=== PATIENT | female | born 1975 | race Caucasian/White ===

== ENCOUNTER 2019-01-19 17:39 | Inpatient (IN) | payer BC ==
[2019-01-19] MEDS ORDERED: ASPIRIN 300 MG SUPP RECTAL STA (17:50)
--- NOTE | 2019-01-19 17:59 | ED ---
CPR HPI - General Stated Complaint: Cardiac arrest Time Seen by Provider: 01/19/19 17:39 Source: EMS, RN notes reviewed Mode of arrival: EMS Limitations: no limitations - History of Present Illness Initial Comments: This a 43-year-old female who was brought in by EMS after sustaining a cardiac arrest. Patient apparently did not feel well yesterday this morning was complaining of chest pain her was acting driving her to the hospital when she became unresponsive. EMS was called she was found to be in ventricular fibrillation unresponsive she was given a total of 4 mg epinephrine 450 mg amiodarone she was verbally to 5 times. Patient apparently became unresponsive at around 1700 hrs. Return of spontaneous circulation about 1719. Patient has no known history of heart disease. Per paramedics there was a smell of alcohol in the ambulance when working on the patient's unclear whether she was drinking or not. No other information available at this time. The patient did get intubated she did have spontaneous return of circulation. MD Complaint: stopped breathing - Related Data Home Medications Medication Instructions Recorded Confirmed Elderberry Fruit/Honey [Little 10 ml PO DAILY 01/19/19 01/19/19 Remedies Cough-Immune] Allergies Allergy/AdvReac Type Severity Reaction Status Date / Time Penicillins Allergy Unknown Verified 01/19/19 19:19 Childhood Review of Systems ROS Statement: Those systems with pertinent positive or pertinent negative responses have been documented in the HPI. ROS Other: All systems not noted in ROS Statement are negative. Limitations: ROS unobtainable due to patients medical condition Past Medical History Past Medical History: No Reported History History of Any Multi-Drug Resistant Organisms: None Reported Past Surgical History: No Surgical Hx Reported Past Psychological History: No Psychological Hx Reported Smoking Status: Never smoker Past Alcohol Use History: None Reported Past Drug Use History: None Reported General Exam - General Exam Comments Initial Comments: This is a well-developed well-nourished unresponsive female who presented initially intubated with a Alonzo device on she was assisting with breathing. Limitations: no limitations General appearance: other (Unresponsive) Head exam: Present: atraumatic, normocephalic, normal inspection Eye exam: Present: other (Pupils approximately 4 mm and sluggish) ENT exam: Present: other (Oral tracheal tube in place) Neck exam: Present: normal inspection, other (No stridor JVD or bruits). Absent : tenderness, meningismus, lymphadenopathy Respiratory exam: Present: normal lung sounds bilaterally. Absent: respiratory distress, wheezes, rales, rhonchi, stridor Cardiovascular Exam: Present: normal rhythm, bradycardia GI/Abdominal exam: Present: soft, normal bowel sounds. Absent: distended, tenderness, guarding, rebound, rigid Rectal exam: Present: deferred External exam: Present: normal external exam Extremities exam: Present: normal inspection, normal capillary refill. Absent: tenderness, pedal edema, joint swelling, calf tenderness Back exam: Present: normal inspection Neurological exam: Present: alert, altered, other (Unresponsive) Psychiatric exam: Present: other (Unable to evaluate) Skin exam: Present: warm, dry, intact, normal color. Absent: rash Course Vital Signs 01/19/19 17:45 Temperature 98.7 F Pulse Rate 56 L Respiratory 20 Rate Blood Pressure 137/43 O2 Sat by Pulse 99 Oximetry - Reevaluation(s) Reevaluation #1: 01/19/19 18:48 I did a long discussion with the patient's regarding the findings and the initial presentation. After discussion sounds like CPR was started within several minutes of the incident. Patient did become unresponsive was foaming at the mouth having some shaking type episodes prior to 911 being called. The patient got her in a position where he could do CPR and did begin at then someone that new CPR took over EMS arrived and then took it from there. Reevaluation #2: 01/19/19 18:49 EKGs were difficult to obtain upon initial arrival. An EKG was finally obtained which showed a right bundle-branch block with a rate is 79 MI interval 162 QRS 122 QT since QTC 450 05/01/[address] elevation in the anterior leads. Dr. Dc was contacted and was sent a copy of EKG he will come in to examine the patient and make a determination on further care. Reevaluation #3: 01/19/19 19:31 Multiple EKGs were performed on the patient with a lot of artifact noted. Initial one showed indeterminate rhythm rate is 78. Interval 186 QRS duration 140 QT since QTC 382/435) bundle-branch block 8 undetermined age septal infarct with marked 1 artifact a repeat showed similar findings of marked artifact the rate is 78. Interval to 16 QRS duration 140 QT since QTC 370/4:30) bundle- branch block nonspecific septal changes additional EKG showing marked artifact rate was 56 QRS 132 QT since QTC 460/447 Bundle-branch block septal changes possible injury pattern though unclear last one prior to the clean-appearing 1 rate of 55 QRS 120 QT since QTC 420/4011 QRS possible fusion beats likely secondary to artifact right bundle-branch block and evidence of septal changes Reevaluation #4: 01/19/19 19:37 The patient is a patient of Dr. Dawson Medical Decision Making - Medical Decision Making I did a long discussion with the patient's Dr. Hebert did come the emergency department and the patient will be going to [facility]. I did discuss case with Dr. Conti and with Dr. Jackson. The patient will go to the [facility]. D-dimer was noted be elevated. Neurological status at this time is guarded. The patient did require some sedation due to fighting the endotracheal tube/ ventilator. - Lab Data Result diagrams: 01/19/19 17:51 01/19/19 17:51 Lab Results 01/19/19 01/19/19 01/19/19 Range/Units 17:48 17:51 17:51 WBC 11.8 H (3.8-10.6) k/uL RBC 4.55 (3.80-5.40) m/uL Hgb 15.0 (11.4-16.0) gm/dL Hct 49.5 H (34.0-46.0) % MCV 108.9 H (80.0-100.0) fL MCH 33.1 (25.0-35.0) pg MCHC 30.4 L (31.0-37.0) g/dL RDW 12.9 (11.5-15.5) % Plt Count 204 (150-450) k/uL Neutrophils % (Manual) 37 % Lymphocytes % (Manual) 54 % Monocytes % (Manual) 8 % Eosinophils % (Manual) 1 % Neutrophils # (Manual) 4.37 (1.3-7.7) k/uL Lymphocytes # (Manual) 6.37 H (1.0-4.8) k/uL Monocytes # (Manual) 0.94 (0-1.0) k/uL Eosinophils # (Manual) 0.12 (0-0.7) k/uL Nucleated RBCs 0 (0-0) /100 WBC Manual Slide Review Performed Hypochromasia Moderate Macrocytosis Moderate PT (9.0-12.0) sec INR (<1.2) APTT (22.0-30.0) sec D-Dimer (<0.60) mg/L FEU Sample Site ABG pH (7.35-7.45) ABG pCO2 (35-45) mmHg ABG pO2 (83-108) mmHg ABG HCO3 (21-25) mmol/L ABG Total CO2 (19-24) mmol/L ABG O2 Saturation (94-97) % ABG Base Excess mmol/L David Test FiO2 % Sodium 138 (137-145) mmol/L Potassium 4.5 (3.5-5.1) mmol/L Chloride 107 (98-107) mmol/L Carbon Dioxide 12 L (22-30) mmol/L Anion Gap 19 mmol/L BUN 15 (7-17) mg/dL Creatinine 1.27 H (0.52-1.04) mg/dL Est GFR (CKD-EPI)AfAm 60 (>60 ml/min/1.73 sqM) Est GFR (CKD-EPI)NonAf 52 (>60 ml/min/1.73 sqM) Glucose 324 H (74-99) mg/dL POC Glucose (mg/dL) 360 H (75-99) mg/dL POC Glu It Web Development Consultant ID Tone Goncalves Calcium 8.7 (8.4-10.2) mg/dL Magnesium 2.5 H (1.6-2.3) mg/dL Total Bilirubin 1.4 H (0.2-1.3) mg/dL AST 80 H (14-36) U/L ALT 27 (9-52) U/L Alkaline Phosphatase 49 (38-126) U/L Troponin I (0.000-0.034) ng/mL NT-Pro-B Natriuret Pep pg/mL Total Protein 6.2 L (6.3-8.2) g/dL Albumin 3.7 (3.5-5.0) g/dL Amylase 68 (30-110) U/L Lipase 177 (23-300) U/L Urine Color Urine Appearance (Clear) Urine pH (5.0-8.0) Ur Specific [place] (1.001-1.035) Urine Protein (Negative) Urine Glucose (UA) (Negative) Urine Ketones (Negative) Urine Blood (Negative) Urine Nitrite (Negative) Urine Bilirubin (Negative) Urine Urobilinogen (<2.0) mg/dL Ur Leukocyte Esterase (Negative) Urine HCG, Qual (Not Detectd) Urine Opiates Screen (NotDetected) Ur Oxycodone Screen (NotDetected) Urine Methadone Screen (NotDetected) Ur Propoxyphene Screen (NotDetected) Ur Barbiturates Screen (NotDetected) U Tricyclic Antidepress (NotDetected) Ur Phencyclidine Scrn (NotDetected) Ur Amphetamines Screen (NotDetected) U Methamphetamines Scrn (NotDetected) U Benzodiazepines Scrn (NotDetected) Urine Cocaine Screen (NotDetected) U Marijuana (THC) Screen (NotDetected) Serum Alcohol <10 mg/dL 01/19/19 01/19/19 01/19/19 Range/Units 17:51 17:51 17:51 WBC (3.8-10.6) k/uL RBC (3.80-5.40) m/uL Hgb (11.4-16.0) gm/dL Hct (34.0-46.0) % MCV (80.0-100.0) fL MCH (25.0-35.0) pg MCHC (31.0-37.0) g/dL RDW (11.5-15.5) % Plt Count (150-450) k/uL Neutrophils % (Manual) % Lymphocytes % (Manual) % Monocytes % (Manual) % Eosinophils % (Manual) % Neutrophils # (Manual) (1.3-7.7) k/uL Lymphocytes # (Manual) (1.0-4.8) k/uL Monocytes # (Manual) (0-1.0) k/uL Eosinophils # (Manual) (0-0.7) k/uL Nucleated RBCs (0-0) /100 WBC Manual Slide Review Hypochromasia Macrocytosis PT 10.6 (9.0-12.0) sec INR 1.0 (<1.2) APTT 26.5 (22.0-30.0) sec D-Dimer 5.11 H (<0.60) mg/L FEU Sample Site ABG pH (7.35-7.45) ABG pCO2 (35-45) mmHg ABG pO2 (83-108) mmHg ABG HCO3 (21-25) mmol/L ABG Total CO2 (19-24) mmol/L ABG O2 Saturation (94-97) % ABG Base Excess mmol/L David Test FiO2 % Sodium (137-145) mmol/L Potassium (3.5-5.1) mmol/L Chloride (98-107) mmol/L Carbon Dioxide (22-30) mmol/L Anion Gap mmol/L BUN (7-17) mg/dL Creatinine (0.52-1.04) mg/dL Est GFR (CKD-EPI)AfAm (>60 ml/min/1.73 sqM) Est GFR (CKD-EPI)NonAf (>60 ml/min/1.73 sqM) Glucose (74-99) mg/dL POC Glucose (mg/dL) (75-99) mg/dL POC Glu It Web Development Consultant ID Calcium (8.4-10.2) mg/dL Magnesium (1.6-2.3) mg/dL Total Bilirubin (0.2-1.3) mg/dL AST (14-36) U/L ALT (9-52) U/L Alkaline Phosphatase (38-126) U/L Troponin I 0.295 H* (0.000-0.034) ng/mL NT-Pro-B Natriuret Pep 462 pg/mL Total Protein (6.3-8.2) g/dL Albumin (3.5-5.0) g/dL Amylase (30-110) U/L Lipase (23-300) U/L Urine Color Urine Appearance (Clear) Urine pH (5.0-8.0) Ur Specific [place] (1.001-1.035) Urine Protein (Negative) Urine Glucose (UA) (Negative) Urine Ketones (Negative) Urine Blood (Negative) Urine Nitrite (Negative) Urine Bilirubin (Negative) Urine Urobilinogen (<2.0) mg/dL Ur Leukocyte Esterase (Negative) Urine HCG, Qual (Not Detectd) Urine Opiates Screen (NotDetected) Ur Oxycodone Screen (NotDetected) Urine Methadone Screen (NotDetected) Ur Propoxyphene Screen (NotDetected) Ur Barbiturates Screen (NotDetected) U Tricyclic Antidepress (NotDetected) Ur Phencyclidine Scrn (NotDetected) Ur Amphetamines Screen (NotDetected) U Methamphetamines Scrn (NotDetected) U Benzodiazepines Scrn (NotDetected) Urine Cocaine Screen (NotDetected) U Marijuana (THC) Screen (NotDetected) Serum Alcohol mg/dL 01/19/19 01/19/19 01/19/19 Range/Units 17:51 17:51 18:42 WBC (3.8-10.6) k/uL RBC (3.80-5.40) m/uL Hgb (11.4-16.0) gm/dL Hct (34.0-46.0) % MCV (80.0-100.0) fL MCH (25.0-35.0) pg MCHC (31.0-37.0) g/dL RDW (11.5-15.5) % Plt Count (150-450) k/uL Neutrophils % (Manual) % Lymphocytes % (Manual) % Monocytes % (Manual) % Eosinophils % (Manual) % Neutrophils # (Manual) (1.3-7.7) k/uL Lymphocytes # (Manual) (1.0-4.8) k/uL Monocytes # (Manual) (0-1.0) k/uL Eosinophils # (Manual) (0-0.7) k/uL Nucleated RBCs (0-0) /100 WBC Manual Slide Review Hypochromasia Macrocytosis PT (9.0-12.0) sec INR (<1.2) APTT (22.0-30.0) sec D-Dimer (<0.60) mg/L FEU Sample Site RRA ABG pH 7.08 L* (7.35-7.45) ABG pCO2 38 (35-45) mmHg ABG pO2 183 H (83-108) mmHg ABG HCO3 11 L (21-25) mmol/L ABG Total CO2 12 L (19-24) mmol/L ABG O2 Saturation 98.9 H (94-97) % ABG Base Excess -18.8 mmol/L David Test Yes FiO2 100 % Sodium (137-145) mmol/L Potassium (3.5-5.1) mmol/L Chloride (98-107) mmol/L Carbon Dioxide (22-30) mmol/L Anion Gap mmol/L BUN (7-17) mg/dL Creatinine (0.52-1.04) mg/dL Est GFR (CKD-EPI)AfAm (>60 ml/min/1.73 sqM) Est GFR (CKD-EPI)NonAf (>60 ml/min/1.73 sqM) Glucose (74-99) mg/dL POC Glucose (mg/dL) (75-99) mg/dL POC Glu It Web Development Consultant ID Calcium (8.4-10.2) mg/dL Magnesium (1.6-2.3) mg/dL Total Bilirubin (0.2-1.3) mg/dL AST (14-36) U/L ALT (9-52) U/L Alkaline Phosphatase (38-126) U/L Troponin I (0.000-0.034) ng/mL NT-Pro-B Natriuret Pep pg/mL Total Protein (6.3-8.2) g/dL Albumin (3.5-5.0) g/dL Amylase (30-110) U/L Lipase (23-300) U/L Urine Color Yellow Urine Appearance Clear (Clear) Urine pH 5.5 (5.0-8.0) Ur Specific [place] 1.014 (1.001-1.035) Urine Protein Negative (Negative) Urine Glucose (UA) Negative (Negative) Urine Ketones Negative (Negative) Urine Blood Negative (Negative) Urine Nitrite Negative (Negative) Urine Bilirubin Negative (Negative) Urine Urobilinogen <2.0 (<2.0) mg/dL Ur Leukocyte Esterase Negative (Negative) Urine HCG, Qual Not Detected (Not Detectd) Urine Opiates Screen Not Detected (NotDetected) Ur Oxycodone Screen Not Detected (NotDetected) Urine Methadone Screen Not Detected (NotDetected) Ur Propoxyphene Screen Not Detected (NotDetected) Ur Barbiturates Screen Not Detected (NotDetected) U Tricyclic Antidepress Not Detected (NotDetected) Ur Phencyclidine Scrn Not Detected (NotDetected) Ur Amphetamines Screen Not Detected (NotDetected) U Methamphetamines Scrn Not Detected (NotDetected) U Benzodiazepines Scrn Not Detected (NotDetected) Urine Cocaine Screen Not Detected (NotDetected) U Marijuana (THC) Screen Detected H (NotDetected) Serum Alcohol mg/dL - EKG Data -: EKG Interpreted by Me EKG shows normal: sinus rhythm (EKG that was finally without much artifact revealed a sinus rhythm 70 and appear of 01 62 QRS duration 122 QT since QTC 450 /516 red bundle-branch block evidence of septal infarct suspicious for ST elevation in the anterior leads.) - Radiology Data Radiology results: report reviewed, image reviewed (I did review the imaging the endotracheal tube appears be good positioning. No definite evidence of infiltrate. No other significant findings at this time) Critical Care Time Critical Care Time: Yes Critical Care Time: 59 minutes of critical care time which includes initial presentation with history physical labs x-rays multiple reevaluation the patient. Discussed with the patient family members. Discussion with the admitting physician and cardiology group. Discussed with the other consults. Admission orders and documentation of the above Disposition Clinical Impression: Acute myocardial infarction, Cardiac arrest with ventricular fibrillation, Acidosis, Acute respiratory failure Disposition: ADMITTED IP TO THIS [facility] Condition: Critical Referrals: Nonstaff,Physician [REFERRING] - 1-2 days
[2019-01-19 18:08] LABS: Glucose,Whole Blood 360 mg/dL (75-99)
[2019-01-19 18:10] LABS: Appearance,Urine Clear (Clear); Bilirubin,Urine Negative (Negative); Blood,Urine Negative (Negative); Color,Urine Yellow; Glucose,Urine (UA) Negative (Negative); Ketones,Urine Negative (Negative); Leukocyte Esterase,Urine Negative (Negative); Nitrite,Urine Negative (Negative); PH, Urine 5.5 (5.0-8.0); Protein,Urine Negative (Negative); Specific Gravity,Urine 1.014 (1.001-1.035); Urobilinogen,Urine <2.0 mg/dL (<2.0)
--- NOTE | 2019-01-19 18:16 | XR ---
EXAMINATION TYPE: XR chest 1V portable DATE OF EXAM: 01/19/2019 COMPARISON: None. HISTORY: Cardiac arrest TECHNIQUE: Single frontal view of the chest is obtained. FINDINGS: Endotracheal and enteric tubes are appropriately positioned. The cardiothymic silhouette i s unremarkable. No focal airspace disease, pleural effusion or pneumothorax. Pacing pads are present projecting over the right hemithorax and left lower abdomen. Osseous structures are intact. Limited e valuation of the upper abdomen is unremarkable. IMPRESSION: 1. Appropriately positioned endotracheal and enteric tubes. 2. No acute process is radiographically evident.
[2019-01-19 18:22] LABS: Amphetamine Screen,Urine Not Detected (NotDetected); Barbiturate Screen,Urine Not Detected (NotDetected); Benzodiazepines Screen,Urine Not Detected (NotDetected); Cocaine Screen,Urine Not Detected (NotDetected); Methadone Screen, Urine Not Detected (NotDetected); Opiate Screen,Urine Not Detected (NotDetected); Oxycodone Screen, Urine Not Detected (NotDetected); Phencyclidine Screen,Urine Not Detected (NotDetected); Tricyclic Antidepressant,Urine Not Detected (NotDetected); Urn Cannabinoid Scrn Detected (NotDetected)
[2019-01-19 18:23] LABS: ALT 27 U/L (9-52); AST 80 U/L (14-36); Albumin 3.7 g/dL (3.5-5.0); Alcohol <10 mg/dL; Alkaline Phosphatase 49 U/L (38-126); Amylase 68 U/L (30-110); Anion Gap 19 mmol/L; Blood Urea Nitrogen 15 mg/dL (7-17); Calcium 8.7 mg/dL (8.4-10.2); Carbon Dioxide 12 mmol/L (22-30); Chloride 107 mmol/L (98-107); Glucose 324 mg/dL (74-99); Lipase 177 U/L (23-300); Magnesium 2.5 mg/dL (1.6-2.3); Sodium 138 mmol/L (137-145); Total Bilirubin 1.4 mg/dL (0.2-1.3); Total Protein 6.2 g/dL (6.3-8.2)
[2019-01-19 18:29] LABS: HCT 49.5 % (34.0-46.0); Hypochromasia Moderate; MCH 33.1 pg (25.0-35.0); MCHC 30.4 g/dL (31.0-37.0); MCV 108.9 fL (80.0-100.0); Macrocytosis Moderate; Mean Platelet Volume 7.7; Platelet Count 204 k/uL (150-450); RBC 4.55 m/uL (3.80-5.40); RDW 12.9 % (11.5-15.5); WBC 11.8 k/uL (3.8-10.6)
[2019-01-19 18:32] LABS: Potassium 4.5 mmol/L (3.5-5.1)
[2019-01-19 18:45] LABS: ABG Base Excess -18.8 mmol/L; ABG HCO3 11 mmol/L (21-25); ABG Oxygen Saturation 98.9 % (94-97); ABG PCO2 38 mmHg (35-45); ABG PO2 183 mmHg (83-108); ABG TCO2 12 mmol/L (19-24)
[2019-01-19 18:49] LABS: ABG PH 7.08 (7.35-7.45)
[2019-01-19 18:53] LABS: Partial Thromboplastin Time 26.5 sec (22.0-30.0); Prothrombin Time 10.6 sec (9.0-12.0)
[2019-01-19] MEDS ORDERED: HEPARIN SODIUM,PORCINE 5,000 UNIT/ML 1 ML VIAL IV STA (18:54)
[2019-01-19 18:58] LABS: D-Dimer 5.11 mg/L FEU (<0.60)
[2019-01-19] MEDS ORDERED: LORazepam 2 MG/ML INJ IV STA ×2 (18:59→19:27)
[2019-01-19 19:10] LABS: Eosinophils # (M) 0.12 k/uL (0-0.7); Lymphocytes # (M) 6.37 k/uL (1.0-4.8); Monocytes # (M) 0.94 k/uL (0-1.0); Neutrophils # (M) 4.37 k/uL (1.3-7.7); Neutrophils % (M) 37 %; Nucleated Red Blood Cells 0 /100 WBC (0-0); Total Cells Counted 100
[2019-01-19] MEDS ORDERED: SODIUM BICARB 8.4% 50 ML SYR (1 MEQ/ML) IV ONE ×2 (19:27→19:34)
[2019-01-19] MEDS ORDERED: LIDOCAINE 1% INJ 10MG/ML (20 ML MDV) ONE (19:45)
[2019-01-19] MEDS ORDERED: MIDAZOLAM 2 MG/2 ML VIAL IVP ONE ×3 (20:00→21:55)
--- NOTE | 2019-01-19 20:04 | CONS ---
CONSULTATION Mrs. Rucker is a 43-year-old female who was brought by EMS after sustaining the cardiac arrest. The history was obtained from the . She did not feel well since yesterday. She was having some chest pain on and off and her was actually driving her to the hospital when she became unresponsive. EMS was called and when the EMS arrived within 5 minutes, she was in Vfib arrest and patient was given 4 mg of epinephrine and amiodarone and was shocked 5 times. The patient became unconscious according to around 5 o'clock and after the shock the spontaneous circulation was achieved at around 5:20. After the 5 shock and the CPR, patient was brought to the emergency room around 5:40. In the emergency room, patient has remained stable, maintaining the blood pressure. She was intubated. A couple of initial EKGs were technically not good quality. Subsequent EKG definitely showed ST-segment elevation and I was called in. At present patient is currently intubated and unresponsive. EKG is suggestive of acute anterior wall myocardial infarction with right bundle branch block. I had a long discussion with the patient's that she might have a severe anoxic encephalopathy and treatment options for cardiac catheterization, angioplasty versus medical treatment. The family members want to proceed with the cardiac catheterization. PAST MEDICAL HISTORY: Includes no history of any major surgeries. The patient does smoke cigars, smokes marijuana as well as a history of smoking. PHYSICAL EXAMINATION: At present reveals a 43-year-old female who is currently unresponsive. She is intubated. HEENT examination is negative. Pupils are not reacting to the light. First and second heart sounds are heard. Lungs are clear to auscultation and percussion. Abdomen is soft. EKG shows evidence of acute anterior wall myocardial infarction with a right bundle branch block pattern. The patient's electrolytes shows CO2 is 12. Hemoglobin is 15. Chest x-ray is normal. Serum alcohol level was less than 10. The drug tox getting showed evidence of THC. The patient's arterial blood gases shows a pH of 7.08. FINAL IMPRESSION: This patient is status post cardiac arrest secondary to ventricular fibrillation. EKG is suggestive of acute anterior wall myocardial infarction. At present, patient does have a pulse and blood pressure, but the patient is unresponsive, intubated, and has a probably metabolic acidosis and lactic acidosis. The patient's condition is very poor. Discussed at length with the that the patient might have a severe anoxic encephalopathy and that various treatment options were discussed including cardiac catheterization versus medical treatment and await until she is awake. However in view of the EKG suggestive of extensive anterior wall myocardial infarction, we will proceed with the cardiac catheterization. The fully understands that she may not have a good neurological recovery and but they want to proceed with it. SALVADOR / BARRINGTON: [id number] /
[2019-01-19] MEDS ORDERED: IV FLUID CONTINUATION 900 ML IV ONE (20:05)
[2019-01-19] MEDS ORDERED: LIDOCAINE 1% INJ 10MG/ML (20 ML MDV) SQ ONE (20:05)
[2019-01-19] MEDS ORDERED: AMIODARONE 50 MG/ML 3 ML VIAL IV ONE (20:12)
[2019-01-19] MEDS ORDERED: HEPARIN SODIUM 1,000 UN/ML (10ML VL) ONE (20:14)
[2019-01-19] MEDS ORDERED: EPINEPHrine 1 MG/ML 1 ML AMP IV ONE (20:21)
[2019-01-19] MEDS ORDERED: TIROFIBAN BOLUS 12.5MG/250 ML BAG IV ONE (20:23)
[2019-01-19] MEDS ORDERED: TIROFIBAN 12.5MG-250ML NS 250 ML IV ONE (20:23)
[2019-01-19] MEDS: EPINEPHrine 10 ML SYRINGE (0.1 MG/ML) IV ONE ×2 (20:38→20:45)
[2019-01-19] MEDS ORDERED: SODIUM CHLORIDE 0.9% 1,000 ML IV ONE (20:39)
[2019-01-19] MEDS ORDERED: DEXTROSE 5% IN WATER 100 ML with AMIODARONE 150 MG IV ONE (20:40)
[2019-01-19] MEDS ORDERED: NITROGLYCERIN 1000MCG/10ML SYRINGE INTRACORON ONE (20:46)
[2019-01-19] MEDS ORDERED: CLOPIDOGREL 75 MG TAB ONE (20:58)
[2019-01-19] MEDS ORDERED: CLOPIDOGREL 75 MG TAB OG-TUBE ONE (21:00)
[2019-01-19] MEDS ORDERED: NOREPINEPHRINE 4 MG in SODIUM CHLORIDE 0.9% 250 ML IV ONE (21:00)
[2019-01-19] MEDS ORDERED: TIROFIBAN 12.5MG-250ML NS 250 ML IV SCH (21:00)
[2019-01-19] MEDS ORDERED: IOPAMIDOL-370 125ML BTL INJ ONE (21:17)
[2019-01-19] MEDS ORDERED: IOPAMIDOL-370 100ML BTL INJ ONE (21:17)
[2019-01-19] MEDS: NOREPINEPHRINE 4 MG in SODIUM CHLORIDE 0.9% 250 ML IV SCH (22:10)
[2019-01-19] MEDS: PROPOFOL 1,000 MG in EMPTY BAG 1 BAG IV SCH (22:10)
[2019-01-19 22:18] LABS: Glucose,Whole Blood 222 mg/dL (75-99)
--- NOTE | 2019-01-19 22:26 | PTCA ---
PERCUTANEOUSTRANS CORORONARY ANGIOGRAPHY DATE OF SERVICE: 01/19/2019. PROCEDURE: 1. Intra-aortic balloon pump placement from right femoral approach. 2. PTCA and stenting of a totally occluded mid LAD performed in the setting of an acute anterior TN with ventricular fibrillation and resuscitation with CPR. Moderate conscious sedation time was 73 minutes. CLINICAL INFORMATION: Mrs. Hilda Rucker is a 43-year-old lady who came into the hospital brought in by her and as he was bringing her in with chest pain she passed out and was in ventricular fibrillation, had a CPR performed. Subsequently, she was brought to the ICU. Please look at Dr. Debbie Dc's note for further information. Apparently this patient had a prolonged CPR of more than 40 minutes. After she was resuscitated, the pH was 7.08. She received bicarbonate and was brought to the skill labor. In the skill labor she was shocked 3 times for sustained ventricular tachycardia and coronary angiography by Dr. Debbie Dc revealed a total occlusion of LAD in the midportion with a significant amount of thrombus burden. PROCEDURE NOTE: The existing 6-Estonian introducer in the right femoral artery was used to perform the procedure. I used a JL3.5 guide catheter to cannulate the left coronary artery. A run- through wire was used. After some difficulty I was able to cross the total occlusion and the wire was kept distally. I initially used a 2.5 caliber 8 mm balloon to give an initial inflation. I then used a 20 mm long 2.5 caliber Trek balloon and gave multiple inflations. I then deployed a 15 mm long 3.0 caliber Xience stent at the site of total occlusion. There was a diagonal branch that came off at the site of total occlusion and this diagonal branch was transiently occluded. However, after some nitroglycerin the diagonal branch opened up and there was excellent flow in the LAD all the way to the apex. The LAD, therefore, had an excellent angiographic result. The patient was sedated with Versed and is on a ventilator. She is making some urine. She received heparin intravenously as well as Aggrastat drip as per protocol. ACT was about 275. Following the intervention procedure, I took the guide catheter out and switched over to 8-Estonian introducer and placed intra-aortic balloon pump. There was good augmentation of the pressures noted. The augmented pressure was about 105-110. The balloon pump position was checked under fluoroscopy. The sheath as well as the balloon pump was sutured and patient will be sent to the ICU. Angiographically, an excellent angiographic result was achieved. Patient received 600 mg of Plavix. However, prognosis remains poor since this was a prolonged CPR and the possibility of neurological damage should be considered. Prognosis remains poor, but angiographic result was excellent. The findings and details were discussed with the patient's family. MMODL / IJN: [id number] /
[2019-01-19 23:00] LABS: ABG Base Excess -8.4 mmol/L; ABG HCO3 18 mmol/L (21-25); ABG Oxygen Saturation 99.9 % (94-97); ABG PCO2 33 mmHg (35-45); ABG PH 7.33 (7.35-7.45); ABG PO2 275 mmHg (83-108); ABG TCO2 19 mmol/L (19-24)
[2019-01-19] MEDS ORDERED: AMIODARONE 360 MG in DEXTROSE 5% IN WATER 200 ML IV ONE ×2 (23:00)
--- NOTE | 2019-01-19 23:09 | XR ---
EXAM: XR Chest, 1 View CLINICAL HISTORY: ITS.REASON XR Reason: intubation TECHNIQUE: Frontal view of the chest. COMPARISON: Chest radiography 01/19/19 performed 1808 hrs. FINDINGS: See Impression. IMPRESSION: Stable support devices. Increasing interstitial thickening involving the perihilar regions and upper lungs may be due to lower lung volumes, although interstitial pulmonary edema is not excluded. Attention on follow-up. No radiographically visible pneumothorax.
[2019-01-20] MEDS ORDERED: NALOXONE 0.4 MG/ML 1 ML VIAL IV PRN
[2019-01-20] MEDS: SODIUM CHLORIDE 0.9% 1,000 ML IV SCH ×2 (00:04→11:45)
[2019-01-20] MEDS: INSULIN ASPART (NovoLOG) 100 UNIT/ML VIAL SQ SCH ×5 (00:21→21:00)
[2019-01-20 00:30] LABS: Glucose,Whole Blood 171 mg/dL (75-99)
[2019-01-20 01:41] VITALS: BMI 27.4
[2019-01-20] MEDS ORDERED: ACETAMINOPHEN IV (For NPO) 1,000 MG in EMPTY BAG 1 BAG IVPB PRN (04:00)
[2019-01-20 04:14] LABS: ABG Base Excess -4.7 mmol/L; ABG HCO3 20 mmol/L (21-25); ABG Oxygen Saturation 99.4 % (94-97); ABG PCO2 33 mmHg (35-45); ABG PO2 185 mmHg (83-108); ABG TCO2 21 mmol/L (19-24)
[2019-01-20 04:24] LABS: Glucose,Whole Blood 152 mg/dL (75-99)
[2019-01-20 04:51] LABS: Basophils # (A) 0.1 k/uL (0-0.2); Basophils % (A) 0 %; Eosinophils # (A) 0.1 k/uL (0-0.7); Eosinophils % (A) 0 %; HCT 45.6 % (34.0-46.0); HGB 15.2 gm/dL (11.4-16.0); Lymphocytes # (A) 0.7 k/uL (1.0-4.8); Lymphocytes % (A) 3 %; MCH 34.4 pg (25.0-35.0); MCHC 33.2 g/dL (31.0-37.0); Macrocytosis Slight; Mean Platelet Volume 7.5; Monocytes % (A) 4 %; Neutrophils # (A) 20.4 k/uL (1.3-7.7); Neutrophils % (A) 91 %; Platelet Count 255 k/uL (150-450); RDW 13.4 % (11.5-15.5); WBC 22.3 k/uL (3.8-10.6)
[2019-01-20 04:52] LABS: MCV 103.6 fL (80.0-100.0)
[2019-01-20 04:58] LABS: Albumin 3.5 g/dL (3.5-5.0); Calcium 8.3 mg/dL (8.4-10.2); Magnesium 1.9 mg/dL (1.6-2.3); Phosphorus 3.2 mg/dL (2.5-4.5); Potassium 3.9 mmol/L (3.5-5.1); Total Bilirubin 0.6 mg/dL (0.2-1.3); Total Protein 5.8 g/dL (6.3-8.2)
[2019-01-20 04:59] LABS: Prothrombin Time 10.3 sec (9.0-12.0)
[2019-01-20 05:00] LABS: Partial Thromboplastin Time 21.4 sec (22.0-30.0)
[2019-01-20] MEDS: AMIODARONE 300 MG in DEXTROSE 5% IN WATER 250 ML IV SCH ×4 (05:30→12:46)
[2019-01-20] MEDS: MAGNESIUM SULFATE-D5W PMX 1 GM in DEXTROSE/WATER 1 100ML.BAG IVPB SCH ×2 (05:31→09:56)
[2019-01-20] MEDS ORDERED: POTASSIUM BICARBONATE/CIT AC 20 MEQ TABLET.EFF NG-TUBE SCH (06:00)
--- NOTE | 2019-01-20 07:10 | XR ---
EXAMINATION TYPE: XR chest 1V portable DATE OF EXAM: 01/20/2019 COMPARISON: 01/19/2019 INDICATION: Mechanical ventilation TECHNIQUE: Single frontal view of the chest is obtained. FINDINGS: The heart size is normal. The pulmonary vasculature is normal. No suspicious infiltrates are evident. Endotracheal tube tip is above the hermes. Nasogastric tube transverses the thorax. IMPRESSION: 1. No acute pulmonary process.
[2019-01-20] MEDS ORDERED: SODIUM CHLORIDE 0.9% 1,000 ML IV ONE (07:51)
--- NOTE | 2019-01-20 07:56 | P.CNPUL ---
History of Present Illness Consult date: 01/20/19 Chief complaint: Cardiac arrest History of present illness: This is a 43-year-old female patient was brought into the emergency department yesterday via EMS following a cardiac arrest. The patient has an extensive family history for cardiac disease. She is a smoker. Apparently she was not doing and feeling well the day before the admission. The patient was having some chest pain on and off. The wanted to drive this patient to the hospital and on around the patient became unresponsive. Apparently the patient was pulled out of the car and the initiated CPR. There were also some bystanders were involved in the CPR process. Following that EMS arrived to the scene and the patient was found to be in ventricular fibrillation and cardiac arrest. Resuscitation was continued. The patient was intubated on the field. She was given a total of 4 mg of epinephrine and amiodarone and she was given shocks total of 5 times. The patient was brought into the emergency department and she arrived at 5:40 PM. Note that the cardiac arrest occurred at around 5 PM and the first is a station was initiated at 5:20 PM. In the ED, the patient had initial EKG that showed ST segment elevations, she was taken ventilator cardiac lab. Note that in the ED, the patient had another brief cardiac arrest and she also interested in the cardiac lab. Catheterization was done. The patient was found to have LAD occlusion and an emergent PTCA and stenting of a total occluded mid LAD was performed for an anterior wall myocardial infarction. Intra-aortic balloon pump was also placed via the femoral approach. Following that, the patient was brought into the intensive care unit Overnight, the patient was kept on an intra-aortic balloon pump with a one-to- one augmentation. Her Augmentin blood pressure this morning is around 110. She is completely unresponsive. She is on 5 mics of Diprivan for now. She postures whenever she is given painful stimulation. Pupils around 4 mm in size and there slightly reactive to light. The patient has downward gaze. She does have some occasional nystagmus. There is corneal reflex. There is breathing reflex. She is on a mechanical ventilator and currently she is an assist- control mode rate of 18 with a tidal volume of 500 and FiO2 down to 35% with a PEEP of 5. The morning blood gases showed improvement in her metabolic acidosis. Noted the patient presented initially with severe metabolic acidosis with a pH of 7.08 and a pCO2 of 38 and pO2 of 183 based on the initial blood gas. Most recent blood gases showing a pH of 7.4 with a pCO2 of 33 and pO2 of 185. The chest x-ray showing some increased pulmonary vessel markings. ET tube is high and the tracheotomy to be pushed in. The patient is intubated by a #7 orotracheal tube. The patient currently has no clinical seizures. She is having loose liquidy diarrhea and an FMS system was applied to her. Her morning white count is 22.3. Hemoglobin is at 15.2. Renal function is stable with a creatinine is down to 0.9 and the patient is producing adequate amount of urine output. She is on no pressors for now. The first set of troponin was at 0.2. ProBNP level was at 462. She is afebrile. She is currently on amiodarone drip with a heart rhythm which is sinus. She is also on aspirin. She is on Plavix. She is on high-dose statins. Norepinephrine infusion has been discontinued. She is on 5 mics of propofol and normal saline infusion at the rate of 75 mL an hour. No hypothermia. She is afebrile for now. Review of Systems ROS unobtainable: due to endotracheal tube Past Medical History Past Medical History: No Reported History Additional Past Medical History / Comment(s): Rheumatic fever. History of Any Multi-Drug Resistant Organisms: None Reported Past Surgical History: Tonsillectomy, Tubal Ligation Past Psychological History: No Psychological Hx Reported Smoking Status: Current every day smoker Past Alcohol Use History: Daily Additional Past Alcohol Use History / Comment(s): 6 beers/day Past Drug Use History: Marijuana - Past Family History Brother(s) Family Medical History: Myocardial Infarction ([place]) Father Family Medical History: Myocardial Infarction ([place]) Medications and Allergies Home Medications Medication Instructions Recorded Confirmed Type Elderberry Fruit/Honey [Little 10 ml PO DAILY 01/19/19 01/19/19 History Remedies Cough-Immune] Allergies Allergy/AdvReac Type Severity Reaction Status Date / Time Penicillins Allergy Unknown Verified 01/19/19 19:19 Childhood Physical Exam Vitals: Vital Signs Temp Pulse Pulse Resp BP Pulse Ox 01/20/19 07:15 89 18 98 01/20/19 07:00 88 18 97 01/20/19 06:45 100 18 98 01/20/19 06:30 96 18 98 01/20/19 06:15 98 19 97 01/20/19 06:00 99 18 98 01/20/19 05:45 108 H 19 97 01/20/19 05:30 91 18 98 01/20/19 05:15 109 H 18 97 01/20/19 05:00 92 19 97 01/20/19 04:45 96 18 98 01/20/19 04:30 112 H 20 97 01/20/19 04:15 112 H 21 98 01/20/19 04:00 99.5 F 112 H 98 18 98 01/20/19 03:45 114 H 24 98 01/20/19 03:30 114 H 19 98 01/20/19 03:15 113 H 18 98 01/20/19 03:00 102 H 18 98 01/20/19 02:45 104 H 19 98 01/20/19 02:30 104 H 18 98 01/20/19 02:15 98.6 F 104 H 18 98 01/20/19 02:00 106 H 18 98 01/20/19 01:45 112 H 19 98 01/20/19 01:30 98.4 F 116 H 21 98 01/20/19 01:15 116 H 20 98 01/20/19 01:00 121 H 23 98 01/20/19 00:50 117 H 20 98 01/20/19 00:40 124 H 32 H 99 01/20/19 00:30 122 H 20 98 01/20/19 00:20 121 H 18 98 01/20/19 00:10 99.8 F H 120 H 25 H 98 01/20/19 00:00 120 H 116 H 28 H 98 01/19/19 23:50 122 H 22 98 01/19/19 23:40 122 H 20 98 01/19/19 23:30 112 H 22 98 01/19/19 23:20 126 H 24 96 01/19/19 23:10 125 H 23 97 01/19/19 23:00 118 H 25 H 98 01/19/19 22:50 113 H 24 98 01/19/19 22:40 110 H 20 99 01/19/19 22:30 98.5 F 106 H 22 100 01/19/19 22:10 120 H 23 01/19/19 19:45 97.6 F 60 12 118/78 98 02/23/19 19:30 97.6 F 58 L 12 114/92 100 01/19/19 19:15 58 L 12 120/93 100 01/19/19 19:00 60 12 124/99 98 01/19/19 18:30 62 12 116/87 100 01/19/19 17:45 98.7 F 56 L 20 137/43 99 01/19/19 17:40 52 L 14 Intake and Output 01/19/19 01/20/19 01/20/19 22:59 06:59 14:59 Intake Total 478 920.443 Output Total 140 395 Balance 338 525.443 Intake: IV 478 717 Sodium Chloride 0.9% 1, 75 675 000 ml @ 75 mls/hr IV . [id number] [facility] Rx#:[id number] Tirofiban 12.5MG-250Ml Ns 14 42 250 ml @ 0.15 MCG/KG/MIN 13.88 mls/hr IV .[id number] [facility] Rx#:[id number] Intake, IV Titration 203.443 Amount Amiodarone 360 mg In 127.765 Dextrose 5% in Water 200 ml @ 1 MG/MIN 33.33 mls/ hr IV .Q6H1M [facility] Rx#: [id number] Norepinephrine 4 mg In 75.678 Sodium Chloride 0.9% 250 ml @ 0.05 MCG/KG/MIN 14. 68 mls/hr IV .[id number] [facility] Rx#:[id number] Output: Urine 140 394 Stool 1 Other: Voiding Method Indwelling Catheter Indwelling Catheter Weight 77.111 kg 72.3 kg Gen. appearance the patient is intubated, comfortable likely distress currently on a mechanical ventilator. Unresponsive to any painful stimulation. No seizure activity. She is on 5 g of Diprivan. Head exam was generally normal. There was no scleral icterus or corneal arcus. Mucous membranes were moist. Neck was supple and without jugular venous distension, thyromegaly, or carotid bruits. Carotids were easily palpable bilaterally. There was no adenopathy. Orogastric and orotracheal tube are both in place. Lungs were clear to auscultation and percussion, and with normal diaphragmatic excursion. No wheezes or rales were noted. Scattered rhonchi heard bilaterally. ET tube needs to be pushed by another 1 cm. She has a #7 orotracheal tube. Cardiac exam revealed the PMI to be normally situated and sized. The rhythm was regular and no extrasystoles were noted during several minutes of auscultation. The first and second heart sounds were normal and physiologic splitting of the second heart sound was noted. There were no murmurs, rubs, clicks, or gallops. Abdomen abdomenAbdominal exam revealed normal bowel sounds. The abdomen was soft , non-tender, and without masses, organomegaly, or appreciable enlargement of the abdominal aorta. Extremities are warm and there is adequate pulses in all 4 extremities. There is no cyanosis or clubbing. No open wounds or sores. Examination of the skin revealed no evidence of significant rashes, suspicious appearing nevi or other concerning lesions. Neurologically the patient is unresponsive. Motor function cannot be assessed. Sensory function cannot be assessed. No facial asymmetry. She has a positive cough and a gag and the patient has positive corneals. There is a nystagmus and the patient is having a downward gaze more social to the right. Pupils are sluggishly reactive to light and there are 4 mm in size. No Babinski. No clonus. Reflexes are +1 symmetric in all 4 extremities. Examination of the skin revealed no evidence of significant rashes, suspicious appearing nevi or other concerning lesions. The patient has a right femoral intra-aortic balloon pump catheter in place. Results - Laboratory Findings CBC and BMP: 01/20/19 04:13 01/20/19 04:13 ABG ABG pH 7.40 (7.35-7.45) 01/20/19 04:09 ABG pCO2 33 mmHg (35-45) L 01/20/19 04:09 ABG pO2 185 mmHg (83-108) H 01/20/19 04:09 ABG O2 Saturation 99.4 % (94-97) H 01/20/19 04:09 PT/INR, D-dimer PT 10.3 sec (9.0-12.0) 01/20/19 04:13 INR 1.0 (<1.2) 01/20/19 04:13 D-Dimer 5.11 mg/L FEU (<0.60) H 01/19/19 17:51 Abnormal lab findings: Abnormal Labs 0201/19/19 01/19/19 17:48 17:51 17:51 WBC 11.8 H Hct 49.5 H MCV 108.9 H MCHC 30.4 L Neutrophils # Lymphocytes # Lymphocytes # (Manual) 6.37 H APTT D-Dimer ABG pH ABG pCO2 ABG pO2 ABG HCO3 ABG Total CO2 ABG O2 Saturation Chloride Carbon Dioxide 12 L BUN Creatinine 1.27 H Glucose 324 H POC Glucose (mg/dL) 360 H Calcium Magnesium 2.5 H Total Bilirubin 1.4 H AST 80 H ALT Troponin I Total Protein 6.2 L U Marijuana (THC) Screen 01/19/19 01/19/19 01/19/19 17:51 17:51 17:51 WBC Hct MCV MCHC Neutrophils # Lymphocytes # Lymphocytes # (Manual) APTT D-Dimer 5.11 H ABG pH ABG pCO2 ABG pO2 ABG HCO3 ABG Total CO2 ABG O2 Saturation Chloride Carbon Dioxide BUN Creatinine Glucose POC Glucose (mg/dL) Calcium Magnesium Total Bilirubin AST ALT Troponin I 0.295 H* Total Protein U Marijuana (THC) Screen Detected H 01/19/19 01/19/19 01/19/19 18:42 22:07 22:55 WBC Hct MCV MCHC Neutrophils # Lymphocytes # Lymphocytes # (Manual) APTT D-Dimer ABG pH 7.08 L* 7.33 L ABG pCO2 33 L ABG pO2 183 H 275 H ABG HCO3 11 L 18 L ABG Total CO2 12 L ABG O2 Saturation 98.9 H 99.9 H Chloride Carbon Dioxide BUN Creatinine Glucose POC Glucose (mg/dL) 222 H Calcium Magnesium Total Bilirubin AST ALT Troponin I Total Protein U Marijuana (THC) Screen 01/20/19 01/20/19 01/20/19 00:14 04:09 04:12 WBC Hct MCV MCHC Neutrophils # Lymphocytes # Lymphocytes # (Manual) APTT D-Dimer ABG pH ABG pCO2 33 L ABG pO2 185 H ABG HCO3 20 L ABG Total CO2 ABG O2 Saturation 99.4 H Chloride Carbon Dioxide BUN Creatinine Glucose POC Glucose (mg/dL) 171 H 152 H Calcium Magnesium Total Bilirubin AST ALT Troponin I Total Protein U Marijuana (THC) Screen 01/20/19 01/20/19 01/20/19 04:13 04:13 04:13 WBC 22.3 H Hct MCV 103.6 H D MCHC Neutrophils # 20.4 H Lymphocytes # 0.7 L Lymphocytes # (Manual) APTT 21.4 L D-Dimer ABG pH ABG pCO2 ABG pO2 ABG HCO3 ABG Total CO2 ABG O2 Saturation Chloride 116 H Carbon Dioxide 20 L BUN 21 H Creatinine Glucose 140 H POC Glucose (mg/dL) Calcium 8.3 L Magnesium Total Bilirubin AST 610 H ALT 79 H Troponin I Total Protein 5.8 L U Marijuana (THC) Screen - Diagnostic Findings Chest x-ray: image reviewed Assessment and Plan Plan: Assessment 1 acute cardiac arrest/V. fib in the setting of a anterior wall myocardial infarction. The patient was resuscitated, she had an emergent cardiac catheterization, stenting of the LAD was done and the patient has an intra- aortic balloon pump in place 2 coronary artery disease with a mid LAD lesion status post emergent cardiac catheterization and PTCA and stenting 3 unresponsiveness with prolonged downtime estimated to be at least 40 minutes. The patient has signs of anoxic encephalopathy. 4 acute respiratory failure secondary to cardiac arrest. The patient was intubated and mechanically ventilated. 5 shock postcardiac arrest and the patient has intra-aortic balloon pump in place. Currently off pressors 6 severe metabolic acidosis, improved 7 diarrhea, likely postcardiac arrest ischemic colitis 8 acute leukocytosis secondary to above Plan Continue vent support the necessary vent changes were done. Keep the patient on low-dose sedation for now. Watch for any seizure activity. Proceed with an EEG. EEG will be needed to rule out any ongoing seizure activity. We'll manage the hemodynamics. The patient will be given another bolus of 1 L of normal saline. She'll be maintained on 75 mL an hour. That'll aortic balloon pump is active at one-to-one augmentation. This can be gradually weaned off as the patient is hemodynamically stable. The patient may, the intra-aortic follow pump today. The active issue for now as the anoxic encephalopathy that occurred following cardiac arrest. We'll continue the patient on amiodarone drip. We'll continue the patient on a combination of aspirin and Plavix. High- dose statins. We'll introduce beta blockers and later stage. Monitor neurologic outcome closely. ICU. Echocardiogram at a later stage. ET tube needs to be pushed by another centimeter. We'll put the patient on empiric antibiotic coverage with IV Zosyn. We'll continue to follow make further recommendations based on her progress. The family will be updated on her condition. Prognosis poor specially with signs of anoxic encephalopathy, unresponsiveness and prolonged downtime postcardiac arrest. We'll continue to follow.
[2019-01-20 09:35] LABS: Glucose,Whole Blood 121 mg/dL (75-99)
[2019-01-20] MEDS: metroNIDAZOLE-NS PMX 500 MG in SALINE 1 100ML.BAG IVPB SCH ×2 (09:55→17:28)
[2019-01-20] MEDS: CLOPIDOGREL 75 MG TAB PO SCH (09:56)
[2019-01-20] MEDS: CHLORHEXIDINE GLUCONATE 15 ML CUP MUCOUS MEM SCH ×2 (09:58→21:01)
[2019-01-20] MEDS: ATORVASTATIN 80 MG TAB PO SCH (09:58)
[2019-01-20] MEDS: ASPIRIN 81 MG PO SCH (10:00)
[2019-01-20] MEDS ORDERED: FUROSEMIDE 10 MG/ML 2 ML VIAL IV ONE (10:26)
--- NOTE | 2019-01-20 10:33 | PCN ---
PROCEDURE NOTE This patient's medical chart reviewed. The patient remains hemodynamically stable during the night. She is still on balloon pump 1-1 and her augmented blood pressure is 120. Patient's urine output is borderline. Now it is about 30 mL/hour. The patient is not responsive to any painful stimulus, is on minimal sedation. Oxygen saturation is 97%. The first and second heart sounds are heard. Lungs are fairly clear to auscultation and percussion. The patient's arterial blood gases shows pH of 7.40, pCO2 is 33 and PO2 is 185. EKG shows evolutionary changes of anterior wall myocardial infarction. FINAL IMPRESSION: 1. This patient is status post cardiac arrest with acute anterior wall myocardial infarction. The patient underwent stent to the LAD. 2. The patient has evidence of severe anoxic encephalopathy. The patient will undergo EEG. Continue the support at present. If the patient remains hemodynamically stable, we will discontinue the balloon pump tomorrow. Echo and Doppler study will be done. We will start the patient on heparin 800 units/hour and give her Lasix 20 mg IV in view that she has significant positive fluid balance. Patient's overall prognosis is very poor and this has been discussed with the patient's . MMODL / IJN: [id number] /
[2019-01-20] MEDS: HEPARIN SOD,PORK IN 0.45% NACL 25,000 UNIT in 0.45% NACL 1 250ML.BAG IV SCH (10:39)
--- NOTE | 2019-01-20 10:42 | CC ---
CARDIAC CATHETERIZATION REPORT PREOPERATIVE DIAGNOSIS: Status post cardiac arrest, acute anterior wall myocardial infarction. HISTORY OF PRESENT ILLNESS: This patient sustained cardiac arrest outside the hospital. The patient was in ventricular fibrillation and had recurrent shock and prolonged CPR. Subsequently pulse and blood pressure was obtained. After a long discussion with the family members, it was decided to take the patient to the cardiac rd lab technician for further evaluation. The patient's family member fully explained that her neurological status may not improve and it is not in a good condition. PROCEDURE: The right groin was prepped and draped in the usual manner and the skin was infiltrated with 2% Xylocaine. The right femoral artery was entered using Seldinger technique a #6- Somali sheath was placed in. Selective coronary angiography was then performed in multiple projections. The patient tolerated the procedure well. Subsequently, Dr. Ana Verde proceeded with a stent to the LAD. SELECTIVE CORONARY ANGIOGRAPHY: LEFT MAIN CORONARY ARTERY is normal and patent. LEFT ANTERIOR DESCENDING CORONARY ARTERY: Mid LAD is totally occluded near the origin of the diagonal branch. CIRCUMFLEX CORONARY ARTERY: Circumflex coronary artery is normal. RIGHT CORONARY ARTERY: The right coronary artery has a mild irregularity in its proximal portion. FINAL IMPRESSION: Total occlusion of the mid LAD at the site of the diagonal branch. Right coronary artery has minimal disease. Circumflex coronary artery is normal. RECOMMENDATIONS: Films were reviewed with Dr. Ana Verde and he will proceed with a stent to the LAD. MMODL / IJN: [id number] /
--- NOTE | 2019-01-20 13:18 | EEG ---
ELECTROENCEPHALOGRAM REPORT PROCEDURE DATE: 01/20/2019 ELECTROENCEPHALOGRAM (EEG) REPORT: TECHNIQUE: A routine 18 channel EEG was performed with video using the 10/20 international placement system. HISTORY: Patient brought to the ER by EMS after cardiac arrest. Patient was not feeling well, complained of chest pain on and off throughout the day. Patient became unresponsive and CPR was started. Patient was given a total of 4 mg of epinephrine and amiodarone and was shocked five times. Patient sent to the physical laboratory assistant for an intra- aortic balloon pump. This was inserted. Patient is now in the ICU. CURRENT MEDICATIONS: Include Narcan, insulin, heparin, clopidogrel, Peridex, ceftriaxone. In addition, the patient is on 5 mcg of Diprivan. STUDY DURATION: 30 minutes. FINDINGS: Background: A sustained posterior dominant rhythm was not seen. ACTIVATION: HYPERVENTILATION: Not performed. Photic Stimulation: No driving seen. SLEEP: Distinctive sleep stages not seen. ABNORMALITIES: This EEG demonstrated a burst suppression pattern. The duration of suppression ranged from approximately 1-3 seconds. The bursts consisted of mixed moderate voltage triphasic waves as well as diffuse delta range slowing. In between the bursts was occasional diffuse synchronous and asynchronous 1-3 hertz delta range slowing. IMPRESSION: Abnormal EEG. This EEG demonstrated a burst suppression pattern. The bursts consisted of generalized triphasic waves as well as diffuse delta range slowing. These findings are not epileptiform in nature. Triphasic waves can be seen in the setting of a metabolic encephalopathy. Overall a burst suppression pattern indicates severe diffuse cerebral dysfunction as may be seen in anoxic or hypoxic encephalopathy. These findings may also be in part due to medication effect. No seizures were recorded. No epileptiform activity was present. Clinical correlation is recommended. These findings were called to the ordering physician at 12:28 pm on 01/20/2019. MMODL / IJN: [id number] /
--- NOTE | 2019-01-20 14:52 | P.HPIM ---
History of Present Illness H&P Date: 01/20/19 Chief Complaint: cardiac arrest 43-year-old female patient was brought into the emergency department yesterday via EMS following a cardiac arrest. The patient has an extensive family history for cardiac disease. She is a smoker. Apparently she was not doing and feeling well the day before the admission. The patient was having some chest pain on and off. The wanted to drive this patient to the hospital and on around the patient became unresponsive. Apparently the patient was pulled out of the car and the initiated CPR. There were also some bystanders were involved in the CPR process. Following that EMS arrived to the scene and the patient was found to be in ventricular fibrillation and cardiac arrest. Resuscitation was continued. The patient was intubated on the field. She was given a total of 4 mg of epinephrine and amiodarone and she was given shocks total of 5 times. The patient was brought into the emergency department and she arrived at 5:40 PM. Note that the cardiac arrest occurred at around 5 PM and the first is a station was initiated at 5:20 PM. In the ED, the patient had initial EKG that showed ST segment elevations, she was taken ventilator cardiac lab. Note that in the ED, the patient had another brief cardiac arrest and she also interested in the cardiac lab. Catheterization was done. The patient was found to have LAD occlusion and an emergent PTCA and stenting of a total occluded mid LAD was performed for an anterior wall myocardial infarction. Intra-aortic balloon pump was also placed via the femoral approach. Following that, the patient was brought into the intensive care unit Review of Systems ROS unobtainable: due to endotracheal tube Past Medical History Past Medical History: No Reported History Additional Past Medical History / Comment(s): Rheumatic fever. History of Any Multi-Drug Resistant Organisms: None Reported Past Surgical History: Tonsillectomy, Tubal Ligation Past Psychological History: No Psychological Hx Reported Smoking Status: Current every day smoker Past Alcohol Use History: Daily Additional Past Alcohol Use History / Comment(s): 6 beers/day Past Drug Use History: Marijuana - Past Family History Brother(s) Family Medical History: Myocardial Infarction (PA) Father Family Medical History: Myocardial Infarction (PA) Medications and Allergies Home Medications Medication Instructions Recorded Confirmed Type Elderberry Fruit/Honey [Little 10 ml PO DAILY 01/19/19 01/19/19 History Remedies Cough-Immune] Allergies Allergy/AdvReac Type Severity Reaction Status Date / Time Penicillins Allergy Unknown Verified 01/19/19 19:19 Childhood Physical Exam Vitals: Vital Signs Temp Pulse Pulse Resp BP Pulse Ox 01/20/19 09:00 86 18 97 01/20/19 08:45 102 H 20 97 01/20/19 08:30 102 H 24 96 01/20/19 08:15 105 H 22 96 01/20/19 08:00 99.1 F 101 H 22 97 01/20/19 07:45 87 18 98 01/20/19 07:30 99 18 97 01/20/19 07:15 89 18 98 01/20/19 07:00 88 18 97 01/20/19 06:45 100 18 98 01/20/19 06:30 96 18 98 01/20/19 06:15 98 19 97 01/20/19 06:00 99 18 98 01/20/19 05:45 108 H 19 97 01/20/19 05:30 91 18 98 01/20/19 05:15 109 H 18 97 01/20/19 05:00 92 19 97 01/20/19 04:45 96 18 98 01/20/19 04:30 112 H 20 97 01/20/19 04:15 112 H 21 98 01/20/19 04:00 99.5 F 112 H 98 18 98 01/20/19 03:45 114 H 24 98 01/20/19 03:30 114 H 19 98 01/20/19 03:15 113 H 18 98 01/20/19 03:00 102 H 18 98 01/20/19 02:45 104 H 19 98 01/20/19 02:30 104 H 18 98 01/20/19 02:15 98.6 F 104 H 18 98 01/20/19 02:00 106 H 18 98 01/20/19 01:45 112 H 19 98 01/20/19 01:30 98.4 F 116 H 21 98 01/20/19 01:15 116 H 20 98 01/20/19 01:00 121 H 23 98 01/20/19 00:50 117 H 20 98 01/20/19 00:40 124 H 32 H 99 01/20/19 00:30 122 H 20 98 01/20/19 00:20 121 H 18 98 01/20/19 00:10 99.8 F H 120 H 25 H 98 01/20/19 00:00 120 H 116 H 28 H 98 01/19/19 23:50 122 H 22 98 01/19/19 23:40 122 H 20 98 01/19/19 23:30 112 H 22 98 01/19/19 23:20 126 H 24 96 01/19/19 23:10 125 H 23 97 01/19/19 23:00 118 H 25 H 98 01/19/19 22:50 113 H 24 98 01/19/19 22:40 110 H 20 99 01/19/19 22:30 98.5 F 106 H 22 100 01/19/19 22:10 120 H 23 01/19/19 19:45 97.6 F 60 12 118/78 98 01/19/19 19:30 97.6 F 58 L 12 114/92 100 01/19/19 19:15 58 L 12 120/93 100 01/19/19 19:00 60 12 124/99 98 01/19/19 18:30 62 12 116/87 100 01/19/19 17:45 98.7 F 56 L 20 137/43 99 01/19/19 17:40 52 L 14 Intake and Output 01/19/19 01/20/19 01/20/19 22:59 06:59 14:59 Intake Total 478 004.557 5006 Output Total 140 635 67 Balance 338 340.432 9856 Intake: IV 988 530 3890 Sodium Chloride 0.9% 1, 75 675 1075 000 ml @ 75 mls/hr IV . [id number] [facility] Rx#:[id number] Tirofiban 12.5MG-250Ml Ns 14 42 250 ml @ 0.15 MCG/KG/MIN 13.88 mls/hr IV .[id number] [facility] Rx#:[id number] Intake, IV Titration 203.443 Amount Amiodarone 360 mg In 127.765 Dextrose 5% in Water 200 ml @ 1 MG/MIN 33.33 mls/ hr IV .Q6H1M [facility] Rx#: [id number] Norepinephrine 4 mg In 75.678 Sodium Chloride 0.9% 250 ml @ 0.05 MCG/KG/MIN 14. 68 mls/hr IV .[id number] [facility] Rx#:[id number] Output: Gastric Drainage 240 Urine 140 394 67 Stool 1 Other: Voiding Method Indwelling Catheter Indwelling Catheter Indwelling Catheter Weight 77.111 kg 72.3 kg Gen. appearance the patient is intubated, comfortable likely distress currently on a mechanical ventilator. Unresponsive to any painful stimulation. No seizure activity. She is on 5 g of Diprivan. Head exam was generally normal. There was no scleral icterus or corneal arcus. Mucous membranes were moist. Neck was supple and without jugular venous distension, thyromegaly, or carotid bruits. Carotids were easily palpable bilaterally. There was no adenopathy. Orogastric and orotracheal tube are both in place. Lungs were clear to auscultation and percussion, and with normal diaphragmatic excursion. No wheezes or rales were noted. Scattered rhonchi heard bilaterally. ET tube needs to be pushed by another 1 cm. She has a #7 orotracheal tube. Cardiac exam revealed the PMI to be normally situated and sized. The rhythm was regular and no extrasystoles were noted during several minutes of auscultation. The first and second heart sounds were normal and physiologic splitting of the second heart sound was noted. There were no murmurs, rubs, clicks, or gallops. Abdomen abdomenAbdominal exam revealed normal bowel sounds. The abdomen was soft , non-tender, and without masses, organomegaly, or appreciable enlargement of the abdominal aorta. Extremities are warm and there is adequate pulses in all 4 extremities. There is no cyanosis or clubbing. No open wounds or sores. Examination of the skin revealed no evidence of significant rashes, suspicious appearing nevi or other concerning lesions. Neurologically the patient is unresponsive. Motor function cannot be assessed. Sensory function cannot be assessed. No facial asymmetry. She has a positive cough and a gag and the patient has positive corneals. There is a nystagmus and the patient is having a downward gaze more social to the right. Pupils are sluggishly reactive to light and there are 4 mm in size. No Babinski. No clonus. Reflexes are +1 symmetric in all 4 extremities. Examination of the skin revealed no evidence of significant rashes, suspicious appearing nevi or other concerning lesions. The patient has a right femoral intra-aortic balloon pump catheter in place. Results CBC & Chem 7: 01/20/19 04:13 01/20/19 04:13 Labs: Abnormal Lab Results - Last 24 Hours (Table) 01/19/19 01/19/19 01/19/19 Range/Units 17:48 17:51 17:51 WBC 11.8 H (3.8-10.6) k/uL Hct 49.5 H (34.0-46.0) % MCV 108.9 H (80.0-100.0) fL MCHC 30.4 L (31.0-37.0) g/dL Neutrophils # (1.3-7.7) k/uL Lymphocytes # (1.0-4.8) k/uL Lymphocytes # (Manual) 6.37 H (1.0-4.8) k/uL APTT (22.0-30.0) sec D-Dimer (<0.60) mg/L FEU ABG pH (7.35-7.45) ABG pCO2 (35-45) mmHg ABG pO2 (83-108) mmHg ABG HCO3 (21-25) mmol/L ABG Total CO2 (19-24) mmol/L ABG O2 Saturation (94-97) % Chloride (98-107) mmol/L Carbon Dioxide 12 L (22-30) mmol/L BUN (7-17) mg/dL Creatinine 1.27 H (0.52-1.04) mg/dL Glucose 324 H (74-99) mg/dL POC Glucose (mg/dL) 360 H (75-99) mg/dL Calcium (8.4-10.2) mg/dL Magnesium 2.5 H (1.6-2.3) mg/dL Total Bilirubin 1.4 H (0.2-1.3) mg/dL AST 80 H (14-36) U/L ALT (9-52) U/L Troponin I (0.000-0.034) ng/mL Total Protein 6.2 L (6.3-8.2) g/dL U Marijuana (THC) Screen (NotDetected) 01/19/19 01/19/19 01/19/19 Range/Units 17:51 17:51 17:51 WBC (3.8-10.6) k/uL Hct (34.0-46.0) % MCV (80.0-100.0) fL MCHC (31.0-37.0) g/dL Neutrophils # (1.3-7.7) k/uL Lymphocytes # (1.0-4.8) k/uL Lymphocytes # (Manual) (1.0-4.8) k/uL APTT (22.0-30.0) sec D-Dimer 5.11 H (<0.60) mg/L FEU ABG pH (7.35-7.45) ABG pCO2 (35-45) mmHg ABG pO2 (83-108) mmHg ABG HCO3 (21-25) mmol/L ABG Total CO2 (19-24) mmol/L ABG O2 Saturation (94-97) % Chloride (98-107) mmol/L Carbon Dioxide (22-30) mmol/L BUN (7-17) mg/dL Creatinine (0.52-1.04) mg/dL Glucose (74-99) mg/dL POC Glucose (mg/dL) (75-99) mg/dL Calcium (8.4-10.2) mg/dL Magnesium (1.6-2.3) mg/dL Total Bilirubin (0.2-1.3) mg/dL AST (14-36) U/L ALT (9-52) U/L Troponin I 0.295 H* (0.000-0.034) ng/mL Total Protein (6.3-8.2) g/dL U Marijuana (THC) Screen Detected H (NotDetected) 01/19/19 01/19/19 01/19/19 Range/Units 18:42 22:07 22:55 WBC (3.8-10.6) k/uL Hct (34.0-46.0) % MCV (80.0-100.0) fL MCHC (31.0-37.0) g/dL Neutrophils # (1.3-7.7) k/uL Lymphocytes # (1.0-4.8) k/uL Lymphocytes # (Manual) (1.0-4.8) k/uL APTT (22.0-30.0) sec D-Dimer (<0.60) mg/L FEU ABG pH 7.08 L* 7.33 L (7.35-7.45) ABG pCO2 33 L (35-45) mmHg ABG pO2 183 H 275 H (83-108) mmHg ABG HCO3 11 L 18 L (21-25) mmol/L ABG Total CO2 12 L (19-24) mmol/L ABG O2 Saturation 98.9 H 99.9 H (94-97) % Chloride (98-107) mmol/L Carbon Dioxide (22-30) mmol/L BUN (7-17) mg/dL Creatinine (0.52-1.04) mg/dL Glucose (74-99) mg/dL POC Glucose (mg/dL) 222 H (75-99) mg/dL Calcium (8.4-10.2) mg/dL Magnesium (1.6-2.3) mg/dL Total Bilirubin (0.2-1.3) mg/dL AST (14-36) U/L ALT (9-52) U/L Troponin I (0.000-0.034) ng/mL Total Protein (6.3-8.2) g/dL U Marijuana (THC) Screen (NotDetected) 01/20/19 01/20/19 01/20/19 Range/Units 00:14 04:09 04:12 WBC (3.8-10.6) k/uL Hct (34.0-46.0) % MCV (80.0-100.0) fL MCHC (31.0-37.0) g/dL Neutrophils # (1.3-7.7) k/uL Lymphocytes # (1.0-4.8) k/uL Lymphocytes # (Manual) (1.0-4.8) k/uL APTT (22.0-30.0) sec D-Dimer (<0.60) mg/L FEU ABG pH (7.35-7.45) ABG pCO2 33 L (35-45) mmHg ABG pO2 185 H (83-108) mmHg ABG HCO3 20 L (21-25) mmol/L ABG Total CO2 (19-24) mmol/L ABG O2 Saturation 99.4 H (94-97) % Chloride (98-107) mmol/L Carbon Dioxide (22-30) mmol/L BUN (7-17) mg/dL Creatinine (0.52-1.04) mg/dL Glucose (74-99) mg/dL POC Glucose (mg/dL) 171 H 152 H (75-99) mg/dL Calcium (8.4-10.2) mg/dL Magnesium (1.6-2.3) mg/dL Total Bilirubin (0.2-1.3) mg/dL AST (14-36) U/L ALT (9-52) U/L Troponin I (0.000-0.034) ng/mL Total Protein (6.3-8.2) g/dL U Marijuana (THC) Screen (NotDetected) 01/20/19 01/20/19 01/20/19 Range/Units 04:13 04:13 04:13 WBC 22.3 H (3.8-10.6) k/uL Hct (34.0-46.0) % MCV 103.6 H D (80.0-100.0) fL MCHC (31.0-37.0) g/dL Neutrophils # 20.4 H (1.3-7.7) k/uL Lymphocytes # 0.7 L (1.0-4.8) k/uL Lymphocytes # (Manual) (1.0-4.8) k/uL APTT 21.4 L (22.0-30.0) sec D-Dimer (<0.60) mg/L FEU ABG pH (7.35-7.45) ABG pCO2 (35-45) mmHg ABG pO2 (83-108) mmHg ABG HCO3 (21-25) mmol/L ABG Total CO2 (19-24) mmol/L ABG O2 Saturation (94-97) % Chloride 116 H (98-107) mmol/L Carbon Dioxide 20 L (22-30) mmol/L BUN 21 H (7-17) mg/dL Creatinine (0.52-1.04) mg/dL Glucose 140 H (74-99) mg/dL POC Glucose (mg/dL) (75-99) mg/dL Calcium 8.3 L (8.4-10.2) mg/dL Magnesium (1.6-2.3) mg/dL Total Bilirubin (0.2-1.3) mg/dL AST 610 H (14-36) U/L ALT 79 H (9-52) U/L Troponin I (0.000-0.034) ng/mL Total Protein 5.8 L (6.3-8.2) g/dL U Marijuana (THC) Screen (NotDetected) 01/20/19 Range/Units 09:22 WBC (3.8-10.6) k/uL Hct (34.0-46.0) % MCV (80.0-100.0) fL MCHC (31.0-37.0) g/dL Neutrophils # (1.3-7.7) k/uL Lymphocytes # (1.0-4.8) k/uL Lymphocytes # (Manual) (1.0-4.8) k/uL APTT (22.0-30.0) sec D-Dimer (<0.60) mg/L FEU ABG pH (7.35-7.45) ABG pCO2 (35-45) mmHg ABG pO2 (83-108) mmHg ABG HCO3 (21-25) mmol/L ABG Total CO2 (19-24) mmol/L ABG O2 Saturation (94-97) % Chloride (98-107) mmol/L Carbon Dioxide (22-30) mmol/L BUN (7-17) mg/dL Creatinine (0.52-1.04) mg/dL Glucose (74-99) mg/dL POC Glucose (mg/dL) 121 H (75-99) mg/dL Calcium (8.4-10.2) mg/dL Magnesium (1.6-2.3) mg/dL Total Bilirubin (0.2-1.3) mg/dL AST (14-36) U/L ALT (9-52) U/L Troponin I (0.000-0.034) ng/mL Total Protein (6.3-8.2) g/dL U Marijuana (THC) Screen (NotDetected) Microbiology - Last 24 Hours (Table) 01/19/19 18:15 Gram Stain - Preliminary Sputum Sputum Culture - Preliminary Thrombosis Risk Factor Assmnt - Choose All That Apply Each Factor Represents 1 point: Acute PA, Age 41-60 years, Obesity (BMI >25) Other Risk Factors: No Other congenital or acquired thrombophilia - If yes, enter type in comment: No Thrombosis Risk Factor Assessment Total Risk Factor Score: 3 Thrombosis Risk Factor Assessment Level: Moderate Risk Assessment and Plan Assessment: 1. Acute cardiac arrest/V. fib/ Anterior wall myocardial infarction. - The patient was resuscitated, she had an emergent cardiac catheterization, stenting of the LAD was done and the patient has an intra-aortic balloon pump in place 2. Coronary artery disease with a mid LAD lesion status post emergent cardiac catheterization and PTCA and stenting 3. Unresponsiveness with prolonged downtime estimated to be at least 40 minutes. - The patient has signs of anoxic encephalopathy. 4. Acute respiratory failure secondary to cardiac arrest. - The patient was intubated and mechanically ventilated. 5. Shock postcardiac arrest and the patient has intra-aortic balloon pump in place. - Currently off pressors 6. Severe metabolic acidosis, improved 7. Diarrhea, likely postcardiac arrest ischemic colitis 8. Acute leukocytosis secondary to above Time with Patient: Greater than 30
[2019-01-20] MEDS ORDERED: ARTIFICIAL TEARS OINTMENT 3.5 GM TUBE BOTH EYES PRN (15:44)
[2019-01-20 15:54] LABS: Glucose,Whole Blood 129 mg/dL (75-99)
[2019-01-20] MEDS: NOREPINEPHRINE 4 MG in SODIUM CHLORIDE 0.9% 250 ML IV SCH (16:38)
[2019-01-20] MEDS ORDERED: ARTIFICIAL TEARS-HYPROMELLOSE DROPS 15 ML BTL BOTH EYES PRN (19:20)
[2019-01-20 21:05] LABS: Glucose,Whole Blood 148 mg/dL (75-99)
[2019-01-21] MEDS: metroNIDAZOLE-NS PMX 500 MG in SALINE 1 100ML.BAG IVPB SCH ×2 (00:08→10:01)
[2019-01-21] MEDS: SODIUM CHLORIDE 0.9% 1,000 ML IV SCH (01:54)
[2019-01-21] MEDS: AMIODARONE 300 MG in DEXTROSE 5% IN WATER 250 ML IV SCH ×2 (01:55)
[2019-01-21] MEDS: INSULIN ASPART (NovoLOG) 100 UNIT/ML VIAL SQ SCH ×2 (03:17→10:02)
[2019-01-21 03:27] LABS: Glucose,Whole Blood 124 mg/dL (75-99)
[2019-01-21 04:50] LABS: Basophils % (A) 0 %; Eosinophils # (A) 0.1 k/uL (0-0.7); Eosinophils % (A) 0 %; HCT 39.5 % (34.0-46.0); HGB 12.7 gm/dL (11.4-16.0); Lymphocytes # (A) 1.7 k/uL (1.0-4.8); Lymphocytes % (A) 9 %; MCH 32.7 pg (25.0-35.0); MCV 102.1 fL (80.0-100.0); Macrocytosis Slight; Mean Platelet Volume 6.5; Monocytes # (A) 0.8 k/uL (0-1.0); Monocytes % (A) 4 %; Neutrophils # (A) 15.7 k/uL (1.3-7.7); Neutrophils % (A) 85 %; Platelet Count 196 k/uL (150-450); RBC 3.87 m/uL (3.80-5.40); RDW 13.3 % (11.5-15.5); WBC 18.4 k/uL (3.8-10.6)
[2019-01-21 04:57] LABS: Partial Thromboplastin Time 31.5 sec (22.0-30.0); Prothrombin Time 10.2 sec (9.0-12.0)
[2019-01-21 05:03] LABS: ALT 60 U/L (9-52); AST 228 U/L (14-36); Alkaline Phosphatase 58 U/L (38-126); Anion Gap 3 mmol/L; Blood Urea Nitrogen 14 mg/dL (7-17); Calcium 7.2 mg/dL (8.4-10.2); Carbon Dioxide 22 mmol/L (22-30); Chloride 116 mmol/L (98-107); Glucose 120 mg/dL (74-99); Magnesium 2.6 mg/dL (1.6-2.3); Phosphorus 2.3 mg/dL (2.5-4.5); Potassium 3.5 mmol/L (3.5-5.1); Sodium 141 mmol/L (137-145); Total Bilirubin 0.4 mg/dL (0.2-1.3); Total Protein 5.2 g/dL (6.3-8.2)
[2019-01-21 05:06] LABS: ABG Base Excess -2.3 mmol/L; ABG HCO3 22 mmol/L (21-25); ABG PCO2 32 mmHg (35-45); ABG PH 7.45 (7.35-7.45); ABG PO2 116 mmHg (83-108); ABG TCO2 23 mmol/L (19-24)
[2019-01-21] MEDS ORDERED: Potassium Replacement Protocol 1 EACH MISC MISCELLANE PRN (06:26)
[2019-01-21] MEDS ORDERED: Phosphorus Replacement Protoco 1 EACH MISC MISCELLANE PRN (06:29)
[2019-01-21] MEDS ORDERED: POTASSIUM PHOSPHATE 10 MMOL in SODIUM CHLORIDE 0.9% 250 ML IV ONE (07:00)
[2019-01-21] MEDS: POTASSIUM BICARBONATE/CIT AC 20 MEQ TABLET.EFF NG-TUBE SCH ×2 (07:10→10:02)
--- NOTE | 2019-01-21 08:20 | XR ---
EXAMINATION TYPE: XR chest 1V DATE OF EXAM: 01/21/2019 CLINICAL HISTORY: Difficulty breathing progress study. TECHNIQUE: Single AP portable semiupright view of the chest is obtained. COMPARISON: Chest x-ray from one day earlier and older studies. FINDINGS: An endotracheal and orogastric tube are stable in appearance. Lungs remain clear without p leural effusion or pneumothorax. Cardiac silhouette size appears within normal limits. Defibrillator pad overlies right chest. Overlying EKG leads are again seen. Osseous structures are intact. IMPRESSION: Overall stable findings, no suspicious acute pulmonary process.
[2019-01-21] MEDS ORDERED: FUROSEMIDE 10 MG/ML 2 ML VIAL IV ONE (09:34)
[2019-01-21 09:52] LABS: Glucose,Whole Blood 124 mg/dL (75-99)
[2019-01-21] MEDS: ATORVASTATIN 80 MG TAB PO SCH (10:02)
[2019-01-21] MEDS: CLOPIDOGREL 75 MG TAB PO SCH (10:02)
[2019-01-21] MEDS: HEPARIN SOD,PORK IN 0.45% NACL 25,000 UNIT in 0.45% NACL 1 250ML.BAG IV SCH (10:02)
[2019-01-21] MEDS: CHLORHEXIDINE GLUCONATE 15 ML CUP MUCOUS MEM SCH (10:02)
[2019-01-21] MEDS: ASPIRIN 81 MG PO SCH (10:02)
[2019-01-21] MEDS: NOREPINEPHRINE 4 MG in SODIUM CHLORIDE 0.9% 250 ML IV SCH (10:03)
--- NOTE | 2019-01-21 10:54 | ECHOF ---
Referral Reason:evaluate LV function post arrest MEASUREMENTS -------- HEIGHT: 165.1 cm WEIGHT: 72.1 kg BP: 145/78 IVSd: 1.1 cm (0.6 - 1.1) LVIDd: 4.2 cm (3.9 - 5.3) LVPWd: 0.8 cm (0.6 - 1.1) IVSs: 1.0 cm LVIDs: 3.2 cm LVPWs: 1.3 cm LA Diam: 2.9 cm (2.7 - 3.8) LAESV Index (A-L): 22.44 ml/m Ao Diam: 2.8 cm (2.0 - 3.7) AV Cusp: 1.6 cm (1.5 - 2.6) LA Diam: 2.3 cm (2.7 - 3.8) MV EXCURSION: 18.221 mm (> 18.000) MV EF SLOPE: 152 mm/s (70 - 150) EPSS: 2.4 cm MV E Merritt: 0.64 m/s MV DecT: 179 ms MV A Merritt: 0.70 m/s MV E/A Ratio: 0.92 RAP: 5.00 mmHg RVSP: 26.54 mmHg FINDINGS -------- Sinus rhythm. This was a technically good study. The left ventricular size is normal. There is borderline concentric left ventricular hypertrophy. Overall left ventricular systolic function is severely impaired with, an EF between 25 - 30 %. Ant erseptal Hypokinesis [place] Hypokinesis. The right ventricle is normal in size. The left atrial size is normal. The right atrial size is normal. The aortic valve is trileaflet, and appears structurally normal. No aortic stenosis or regurgitation. Mild mitral annular calcification present. Mild mitral regurgitation is present. Mild tricuspid regurgitation present. There is no evidence of pulmonary hypertension. The right v entricular systolic pressure, as measured by Doppler, is 26.54mmHg. There is no pulmonic regurgitation present. The aortic root size is normal. There is no pericardial effusion. CONCLUSIONS -------- 1. The left ventricular size is normal. 2. There is borderline concentric left ventricular hypertrophy. 3. Overall left ventricular systolic function is severely impaired with, an EF between 25 - 30 %. 4. Anterseptal Hypokinesis 5. [place] Hypokinesis. 6. The right ventricle is normal in size. 7. The left atrial size is normal. 8. The right atrial size is normal. 9. The aortic valve is trileaflet, and appears structurally normal. No aortic stenosis or regurgitati on. 10. Mild mitral annular calcification present. 11. Mild mitral regurgitation is present. 12. Mild tricuspid regurgitation present. 13. There is no evidence of pulmonary hypertension. 14. The right ventricular systolic pressure, as measured by Doppler, is 26.54mmHg. 15. There is no pulmonic regurgitation present. 16. The aortic root size is normal. 17. There is no pericardial effusion. [employer]: Kristin Rosales RDCS
[2019-01-21 11:02] VITALS: RESP 18
[2019-01-21 12:43] VITALS: TEMP 98.6
[2019-01-21] MEDS: PROPOFOL 1,000 MG in EMPTY BAG 1 BAG IV SCH (12:48)
[2019-01-21 13:12] VITALS: BP 132/92; PULSE 81
--- NOTE | 2019-01-21 13:38 | P.PN ---
Subjective Progress Note Date: 01/21/19 On today's evaluation of 01/21/2019, the patient remains completely unresponsive. She is on 20 mics of the prevent. No seizure activity. EEG from yesterday at shown diffuse slowing along with burst suppression. The patient has remained hemodynamically stable throughout the night. The intra- aortic balloon pump still in place. The patient is currently off pressors. She is producing adequate amount of urine output and she has equal and symmetrical pulses all 4 extremities. Based on all this, I discontinue the IV heparin and subsequently the intra-aortic balloon pump was discontinued. A echocardiogram was done and the patient was found to have impaired LV function with an ejection fraction of 20-25%. Chest x-ray from today showed overall stable findings without any acute cardio pulmonary process. He was in a good location. The patient was in a mechanical ventilator on the same vent setting and the pH was at 7.45 with a pCO2 of 32 and pO2 116 and this was on FiO2 of 35% . She did have some liquid the bowel movements. No abdominal distention. White cell count is at 18.2. Renal function stable at creatinine of 0.7. In terms of her neurologic function is, do not see any progress since yesterday. The patient remains completely unresponsive to deep painful stimulation. Upon lowering the sedation, the patient with Mitchell on the tube. She has sluggish reflexes. She has a weak cough and mechanism. Corneal reflexes also present. At times she is breathing above the mechanical ventilator. He is afebrile. I discussed the case with the family. I think she needs to get transferred to another facility where she will get a neurologic evaluation. I'm going to get a CAT scan of her head prior to her being transferred to make sure there is no acute abnormalities. This CAT scan will be done after removal of the intra- aortic balloon pump. He is afebrile. No other significant events otherwise for now. Objective - Vital Signs Vital signs: Vital Signs Temp 98.6 F 01/21/19 12:00 Pulse 81 01/21/19 12:50 Resp 18 01/21/19 12:50 BP 132/92 01/21/19 12:50 Pulse Ox 99 01/21/19 12:40 Intake & Output 01/20/19 01/21/19 01/21/19 18:59 06:59 18:59 Intake Total 2468.752 1406.224 911.302 Output Total 122 815 0444 Balance 7197.024 8914.224 -179.698 Weight 74.4 kg Intake: IV 1783 1128.0 579.5 Amiodarone 300 mg In 4.0 Dextrose 5% in Water 250 ml @ 0.5 MG/MIN 25 mls/hr IV .Q10H [facility] Rx#: [id number] Heparin Sod,Pork in 0.45% 88 16 NaCl 25,000 unit In 0.45 % NaCl 1 250ml.bag @ 800 UNIT/HR 8 mls/hr IV .Q24H [facility] Rx#:[id number] IABP Heparin pressure bag 33 36 13.5 Sodium Chloride 0.9% 1, 1750 900 450 000 ml @ 75 mls/hr IV . [id number] [facility] Rx#:[id number] metroNIDAZOLE-NS PMX 500 100 100 mg In Saline 1 100ml.bag @ 100 mls/hr IVPB Q8HR [facility] Rx#:[id number] Intake, IV Titration 685.752 278.224 331.802 Amount Amiodarone 300 mg In 184.167 250 Dextrose 5% in Water 250 ml @ 0.5 MG/MIN 25 mls/hr IV .Q10H [facility] Rx#: [id number] Heparin Sod,Pork in 0.45% 68 8 NaCl 25,000 unit In 0.45 % NaCl 1 250ml.bag @ 800 UNIT/HR 8 mls/hr IV .Q24H [facility] Rx#:[id number] Magnesium Sulfate-D5w Pmx 100 1 gm In Dextrose/Water 1 100ml.bag @ 100 mls/hr IVPB Q1H [facility] Rx#: [id number] Norepinephrine 4 mg In 35.611 Sodium Chloride 0.9% 250 ml @ 0.05 MCG/KG/MIN 14. 68 mls/hr IV .[id number] [facility] Rx#:[id number] Potassium Phosphate 10 250 mmol In Sodium Chloride 0 .9% 250 ml @ 125 mls/hr IV ONCE ONE Rx#:[id number] Propofol 1,000 mg In 47.974 20.224 31.802 Empty Bag 1 bag @ Titrate IV .Q0M [facility] Rx#: [id number] cefTRIAXone 1 gm In 50 50 Sodium Chloride 0.9% 50 ml @ 100 mls/hr IVPB Q24HR [facility] Rx#:[id number] metroNIDAZOLE-NS PMX 500 200 mg In Saline 1 100ml.bag @ 100 mls/hr IVPB Q8HR [facility] Rx#:[id number] Output: Urine 963 240 791 Stool 300 Other: Voiding Method Indwelling Catheter Indwelling Catheter Indwelling Catheter - Exam Gen. appearance the patient is intubated, comfortable likely distress currently on a mechanical ventilator. Unresponsive to any painful stimulation. No seizure activity. She is on 20 g of Diprivan. Head exam was generally normal. There was no scleral icterus or corneal arcus. Mucous membranes were moist. Neck was supple and without jugular venous distension, thyromegaly, or carotid bruits. Carotids were easily palpable bilaterally. There was no adenopathy. Orogastric and orotracheal tube are both in place. Lungs were clear to auscultation and percussion, and with normal diaphragmatic excursion. No wheezes or rales were noted. Scattered rhonchi heard bilaterally. ET tube needs to be pushed by another 1 cm. She has a #7 orotracheal tube. Cardiac exam revealed the PMI to be normally situated and sized. The rhythm was regular and no extrasystoles were noted during several minutes of auscultation. The first and second heart sounds were normal and physiologic splitting of the second heart sound was noted. There were no murmurs, rubs, clicks, or gallops. Abdominal exam revealed normal bowel sounds. The abdomen was soft, non-tender, and without masses, organomegaly, or appreciable enlargement of the abdominal aorta. Extremities are warm and there is adequate pulses in all 4 extremities. There is no cyanosis or clubbing. No open wounds or sores. Examination of the skin revealed no evidence of significant rashes, suspicious appearing nevi or other concerning lesions. Neurologically the patient is unresponsive. Motor function cannot be assessed. Sensory function cannot be assessed. No facial asymmetry. She has a positive cough and a gag and the patient has positive corneals. There is a nystagmus and the patient is having a downward gaze more social to the right. Pupils are sluggishly reactive to light and there are 4 mm in size. No Babinski. No clonus. Reflexes are +1 symmetric in all 4 extremities. Examination of the skin revealed no evidence of significant rashes, suspicious appearing nevi or other concerning lesions. The patient has a right femoral intra-aortic balloon pump catheter in place was removed at a later stage. Pulses are equal and symmetrical all 4 extremities. No skin lesions. No mottling of the skin. - Labs CBC & Chem 7: 01/21/19 04:14 01/21/19 12:22 Labs: Abnormal Lab Results - Last 24 Hours (Table) 01/20/19 01/20/19 01/20/19 Range/Units 04:13 15:41 17:38 WBC (3.8-10.6) k/uL MCV (80.0-100.0) fL Neutrophils # (1.3-7.7) k/uL APTT (22.0-30.0) sec ABG pCO2 (35-45) mmHg ABG pO2 (83-108) mmHg ABG O2 Saturation (94-97) % Chloride (98-107) mmol/L Glucose (74-99) mg/dL POC Glucose (mg/dL) 129 H (75-99) mg/dL Calcium (8.4-10.2) mg/dL Phosphorus (2.5-4.5) mg/dL Magnesium (1.6-2.3) mg/dL AST (14-36) U/L ALT (9-52) U/L Troponin I 107.000 H* 45.400 H* (0.000-0.034) ng/mL Total Protein (6.3-8.2) g/dL Albumin (3.5-5.0) g/dL 01/20/19 01/21/19 01/21/19 Range/Units 20:54 03:15 04:14 WBC 18.4 H (3.8-10.6) k/uL MCV 102.1 H (80.0-100.0) fL Neutrophils # 15.7 H (1.3-7.7) k/uL APTT (22.0-30.0) sec ABG pCO2 (35-45) mmHg ABG pO2 (83-108) mmHg ABG O2 Saturation (94-97) % Chloride (98-107) mmol/L Glucose (74-99) mg/dL POC Glucose (mg/dL) 148 H 124 H (75-99) mg/dL Calcium (8.4-10.2) mg/dL Phosphorus (2.5-4.5) mg/dL Magnesium (1.6-2.3) mg/dL AST (14-36) U/L ALT (9-52) U/L Troponin I (0.000-0.034) ng/mL Total Protein (6.3-8.2) g/dL Albumin (3.5-5.0) g/dL 01/21/19 01/21/19 01/21/19 Range/Units 04:14 04:14 05:03 WBC (3.8-10.6) k/uL MCV (80.0-100.0) fL Neutrophils # (1.3-7.7) k/uL APTT 31.5 H (22.0-30.0) sec ABG pCO2 32 L (35-45) mmHg ABG pO2 116 H (83-108) mmHg ABG O2 Saturation 99.0 H (94-97) % Chloride 116 H (98-107) mmol/L Glucose 120 H (74-99) mg/dL POC Glucose (mg/dL) (75-99) mg/dL Calcium 7.2 L (8.4-10.2) mg/dL Phosphorus 2.3 L (2.5-4.5) mg/dL Magnesium 2.6 H (1.6-2.3) mg/dL AST 228 H (14-36) U/L ALT 60 H (9-52) U/L Troponin I (0.000-0.034) ng/mL Total Protein 5.2 L (6.3-8.2) g/dL Albumin 3.0 L (3.5-5.0) g/dL 01/21/19 Range/Units 09:41 WBC (3.8-10.6) k/uL MCV (80.0-100.0) fL Neutrophils # (1.3-7.7) k/uL APTT (22.0-30.0) sec ABG pCO2 (35-45) mmHg ABG pO2 (83-108) mmHg ABG O2 Saturation (94-97) % Chloride (98-107) mmol/L Glucose (74-99) mg/dL POC Glucose (mg/dL) 124 H (75-99) mg/dL Calcium (8.4-10.2) mg/dL Phosphorus (2.5-4.5) mg/dL Magnesium (1.6-2.3) mg/dL AST (14-36) U/L ALT (9-52) U/L Troponin I (0.000-0.034) ng/mL Total Protein (6.3-8.2) g/dL Albumin (3.5-5.0) g/dL Microbiology - Last 24 Hours (Table) 01/19/19 18:15 Gram Stain - Final Sputum Sputum Culture - Final 01/20/19 10:30 Urine Culture - Preliminary Urine,Catheterized Assessment and Plan Plan: Assessment 1 acute cardiac arrest/V. fib in the setting of a anterior wall myocardial infarction. The patient was resuscitated, she had an emergent cardiac catheterization, stenting of the LAD was done and the patient was supported with an intra-aortic balloon pump for cardiogenic shock. Echo shows an ejection fraction of 20-25%. Intra-aortic balloon pump was removed. The patient is currently on no pressors. She is maintaining a low blood pressure. She has adequate urine output. 2 coronary artery disease with a mid LAD lesion status post emergent cardiac catheterization and PTCA and stenting. 3 unresponsiveness with prolonged downtime estimated to be at least 40 minutes. The patient has signs of anoxic encephalopathy. The EEG that was performed yesterday showed generalized triphasic waves as well as diffuse delta range slowing. There was no epileptiform activity. This was consistent with metabolic encephalopathy. There was also burst suppression pattern indicating severe diffuse cerebral dysfunction and this was consistent with hypoxic/anoxic encephalopathy. No seizure activity was recorded. 4 acute respiratory failure secondary to cardiac arrest. The patient was intubated and mechanically ventilated. 5 cardiogenic shock postcardiac arrest and the patient has intra-aortic balloon pump in place. Currently off pressors. The intra-aortic balloon pump will be removed today. 6 severe metabolic acidosis, improved 7 diarrhea, likely postcardiac arrest ischemic colitis him recovered 8 acute leukocytosis secondary to above, improving and the white cell count is down to 18 Plan Recommend removal of the intra-aortic balloon pump. Proceed with a CAT scan of the head without contrast. Monitored hemodynamics. Keep the sedation for now at 20 mics of Diprivan. The patient will be transferred to [facility]. I made arrangements for the transfer. I also stressed with the family were agreeable to the chance to be getting the patient will be better served off in another facility where they have neurology coverage. She may benefit from continuous EEG. She will need a full neurologic exam by neurologist to prognosticate this patient. In my opinion, the patient carries a poor prognosis. I think she is stable for transfer today. We'll proceed with a transfer. Appropriate phone calls were made. At the care evaluation that was done and more than 40 minutes. Time with Patient: Greater than 30
--- NOTE | 2019-01-21 20:52 | PN ---
PROGRESS NOTE This patient is status post anterior wall myocardial infarction and cardiac arrest. The patient had an EEG done which showed evidence which is suggestive of severe anoxic encephalopathy. Patient has remained hemodynamically stable. Blood pressure is 130/90 mmHg. First and second heart sounds are heard. Lungs are clear to auscultation and percussion. The patient's echocardiogram shows atrial septal apical anterior apical hypokinesia with ejection fraction of 30-35 percent. FINAL IMPRESSION: Status post stent to the LAD and status post cardiac arrest. Patient remains unresponsive with severe anoxic encephalopathy. Discussed the condition with Dr. Jackson. We will remove the patient's balloon pump and patient is being considered for transfer to the [facility]. MMODL / IJN: [id number] /
--- NOTE | 2019-01-23 20:22 | P.PN ---
Subjective Progress Note Date: 01/21/19 Principal diagnosis: Cardiac arrest 43-year-old female patient was brought into the emergency department yesterday via EMS following a cardiac arrest. The patient has an extensive family history for cardiac disease. She is a smoker. Apparently she was not doing and feeling well the day before the admission. The patient was having some chest pain on and off. The wanted to drive this patient to the hospital and on around the patient became unresponsive. Apparently the patient was pulled out of the car and the initiated CPR. There were also some bystanders were involved in the CPR process. Following that EMS arrived to the scene and the patient was found to be in ventricular fibrillation and cardiac arrest. Resuscitation was continued. The patient was intubated on the field. She was given a total of 4 mg of epinephrine and amiodarone and she was given shocks total of 5 times. The patient was brought into the emergency department and she arrived at 5:40 PM. Note that the cardiac arrest occurred at around 5 PM and the first is a station was initiated at 5:20 PM. In the ED, the patient had initial EKG that showed ST segment elevations, she was taken ventilator cardiac lab. Note that in the ED, the patient had another brief cardiac arrest and she also interested in the cardiac lab. Catheterization was done. The patient was found to have LAD occlusion and an emergent PTCA and stenting of a total occluded mid LAD was performed for an anterior wall myocardial infarction. Intra-aortic balloon pump was also placed via the femoral approach. Following that, the patient was brought into the intensive care unit 01/21/2019, the patient remains completely unresponsive. She is on 20 mics of the prevent. No seizure activity. EEG from yesterday at shown diffuse slowing along with burst suppression. The patient has remained hemodynamically stable throughout the night. The intra-aortic balloon pump still in place. The patient is currently off pressors. She is producing adequate amount of urine output and she has equal and symmetrical pulses all 4 extremities. Based on all this, I discontinue the IV heparin and subsequently the intra-aortic balloon pump was discontinued. A echocardiogram was done and the patient was found to have impaired LV function with an ejection fraction of 20-25%. Chest x -ray from today showed overall stable findings without any acute cardio pulmonary process. He was in a good location. The patient was in a mechanical ventilator on the same vent setting and the pH was at 7.45 with a pCO2 of 32 and pO2 116 and this was on FiO2 of 35%. She did have some liquid the bowel movements. No abdominal distention. White cell count is at 18.2. Renal function stable at creatinine of 0.7. In terms of her neurologic function is, do not see any progress since yesterday. The patient remains completely unresponsive to deep painful stimulation. Upon lowering the sedation, the patient with Mitchell on the tube. She has sluggish reflexes. She has a weak cough and mechanism. Corneal reflexes also present. At times she is breathing above the mechanical ventilator. He is afebrile. I discussed the case with the family. I think she needs to get transferred to another facility where she will get a neurologic evaluation. I'm going to get a CAT scan of her head prior to her being transferred to make sure there is no acute abnormalities. This CAT scan will be done after removal of the intra-aortic balloon pump. He is afebrile. No other significant events otherwise for now. Objective - Vital Signs Vital signs: Vital Signs Temp 99.3 F 01/21/19 04:00 Pulse 98 01/21/19 09:30 Resp 23 01/21/19 09:30 BP 145/78 01/21/19 09:30 Pulse Ox 98 01/21/19 09:30 Intake & Output 01/20/19 01/21/19 01/21/19 18:59 06:59 18:59 Intake Total 2468.752 1406.224 500 Output Total 963 240 367 Balance 0438.125 3908.224 133 Weight 74.4 kg Intake: IV 1783 1128.0 250 Amiodarone 300 mg In 4.0 Dextrose 5% in Water 250 ml @ 0.5 MG/MIN 25 mls/hr IV .Q10H [facility] Rx#: [id number] Heparin Sod,Pork in 0.45% 88 16 NaCl 25,000 unit In 0.45 % NaCl 1 250ml.bag @ 800 UNIT/HR 8 mls/hr IV .Q24H [facility] Rx#:[id number] IABP Heparin pressure bag 33 36 9 Sodium Chloride 0.9% 1, 1750 900 225 000 ml @ 75 mls/hr IV . [id number] [facility] Rx#:[id number] metroNIDAZOLE-NS PMX 500 100 mg In Saline 1 100ml.bag @ 100 mls/hr IVPB Q8HR [facility] Rx#:[id number] Intake, IV Titration 685.752 278.224 250 Amount Amiodarone 300 mg In 184.167 250 Dextrose 5% in Water 250 ml @ 0.5 MG/MIN 25 mls/hr IV .Q10H [facility] Rx#: [id number] Heparin Sod,Pork in 0.45% 68 8 NaCl 25,000 unit In 0.45 % NaCl 1 250ml.bag @ 800 UNIT/HR 8 mls/hr IV .Q24H [facility] Rx#:[id number] Magnesium Sulfate-D5w Pmx 100 1 gm In Dextrose/Water 1 100ml.bag @ 100 mls/hr IVPB Q1H [facility] Rx#: [id number] Norepinephrine 4 mg In 35.611 Sodium Chloride 0.9% 250 ml @ 0.05 MCG/KG/MIN 14. 68 mls/hr IV .[id number] [facility] Rx#:[id number] Potassium Phosphate 10 250 mmol In Sodium Chloride 0 .9% 250 ml @ 125 mls/hr IV ONCE ONE Rx#:[id number] Propofol 1,000 mg In 47.974 20.224 Empty Bag 1 bag @ Titrate IV .Q0M [facility] Rx#: [id number] cefTRIAXone 1 gm In 50 Sodium Chloride 0.9% 50 ml @ 100 mls/hr IVPB Q24HR [facility] Rx#:[id number] metroNIDAZOLE-NS PMX 500 200 mg In Saline 1 100ml.bag @ 100 mls/hr IVPB Q8HR [facility] Rx#:[id number] Output: Urine 963 240 67 Stool 300 Other: Voiding Method Indwelling Catheter Indwelling Catheter Indwelling Catheter - Exam PHYSICAL EXAMINATION: Gen. appearance the patient is intubated, comfortable likely distress currently on a mechanical ventilator. Unresponsive to any painful stimulation. No seizure activity. She is on 5 g of Diprivan. Head exam was generally normal. There was no scleral icterus or corneal arcus. Mucous membranes were moist. Neck was supple and without jugular venous distension, thyromegaly, or carotid bruits. Carotids were easily palpable bilaterally. There was no adenopathy. Orogastric and orotracheal tube are both in place. Lungs were clear to auscultation and percussion, and with normal diaphragmatic excursion. No wheezes or rales were noted. Scattered rhonchi heard bilaterally. ET tube needs to be pushed by another 1 cm. She has a #7 orotracheal tube. Cardiac exam revealed the PMI to be normally situated and sized. The rhythm was regular and no extrasystoles were noted during several minutes of auscultation. The first and second heart sounds were normal and physiologic splitting of the second heart sound was noted. There were no murmurs, rubs, clicks, or gallops. Abdomen exam revealed normal bowel sounds. The abdomen was soft, non-tender, and without masses, organomegaly, or appreciable enlargement of the abdominal aorta. Extremities are warm and there is adequate pulses in all 4 extremities. There is no cyanosis or clubbing. No open wounds or sores. Examination of the skin revealed no evidence of significant rashes, suspicious appearing nevi or other concerning lesions. - Labs CBC & Chem 7: 01/21/19 04:14 01/21/19 12:22 Labs: Abnormal Lab Results - Last 24 Hours (Table) 01/20/19 01/20/19 01/20/19 Range/Units 04:13 11:00 15:41 WBC (3.8-10.6) k/uL MCV (80.0-100.0) fL Neutrophils # (1.3-7.7) k/uL APTT (22.0-30.0) sec ABG pCO2 (35-45) mmHg ABG pO2 (83-108) mmHg ABG O2 Saturation (94-97) % Chloride (98-107) mmol/L Glucose (74-99) mg/dL POC Glucose (mg/dL) 129 H (75-99) mg/dL Calcium (8.4-10.2) mg/dL Phosphorus (2.5-4.5) mg/dL Magnesium (1.6-2.3) mg/dL AST (14-36) U/L ALT (9-52) U/L Troponin I 107.000 H* 75.100 H* (0.000-0.034) ng/mL Total Protein (6.3-8.2) g/dL Albumin (3.5-5.0) g/dL 01/20/19 01/20/19 01/21/19 Range/Units 17:38 20:54 03:15 WBC (3.8-10.6) k/uL MCV (80.0-100.0) fL Neutrophils # (1.3-7.7) k/uL APTT (22.0-30.0) sec ABG pCO2 (35-45) mmHg ABG pO2 (83-108) mmHg ABG O2 Saturation (94-97) % Chloride (98-107) mmol/L Glucose (74-99) mg/dL POC Glucose (mg/dL) 148 H 124 H (75-99) mg/dL Calcium (8.4-10.2) mg/dL Phosphorus (2.5-4.5) mg/dL Magnesium (1.6-2.3) mg/dL AST (14-36) U/L ALT (9-52) U/L Troponin I 45.400 H* (0.000-0.034) ng/mL Total Protein (6.3-8.2) g/dL Albumin (3.5-5.0) g/dL 01/21/19 01/21/19 01/21/19 Range/Units 04:14 04:14 04:14 WBC 18.4 H (3.8-10.6) k/uL MCV 102.1 H (80.0-100.0) fL Neutrophils # 15.7 H (1.3-7.7) k/uL APTT 31.5 H (22.0-30.0) sec ABG pCO2 (35-45) mmHg ABG pO2 (83-108) mmHg ABG O2 Saturation (94-97) % Chloride 116 H (98-107) mmol/L Glucose 120 H (74-99) mg/dL POC Glucose (mg/dL) (75-99) mg/dL Calcium 7.2 L (8.4-10.2) mg/dL Phosphorus 2.3 L (2.5-4.5) mg/dL Magnesium 2.6 H (1.6-2.3) mg/dL AST 228 H (14-36) U/L ALT 60 H (9-52) U/L Troponin I (0.000-0.034) ng/mL Total Protein 5.2 L (6.3-8.2) g/dL Albumin 3.0 L (3.5-5.0) g/dL 01/21/19 01/21/19 Range/Units 05:03 09:41 WBC (3.8-10.6) k/uL MCV (80.0-100.0) fL Neutrophils # (1.3-7.7) k/uL APTT (22.0-30.0) sec ABG pCO2 32 L (35-45) mmHg ABG pO2 116 H (83-108) mmHg ABG O2 Saturation 99.0 H (94-97) % Chloride (98-107) mmol/L Glucose (74-99) mg/dL POC Glucose (mg/dL) 124 H (75-99) mg/dL Calcium (8.4-10.2) mg/dL Phosphorus (2.5-4.5) mg/dL Magnesium (1.6-2.3) mg/dL AST (14-36) U/L ALT (9-52) U/L Troponin I (0.000-0.034) ng/mL Total Protein (6.3-8.2) g/dL Albumin (3.5-5.0) g/dL Microbiology - Last 24 Hours (Table) 01/20/19 10:30 Urine Culture - Preliminary Urine,Catheterized 01/19/19 18:15 Gram Stain - Preliminary Sputum Sputum Culture - Preliminary Assessment and Plan Assessment: 1. Acute cardiac arrest/V. fib/ Anterior wall myocardial infarction. - The patient was resuscitated, she had an emergent cardiac catheterization, stenting of the LAD was done and the patient has an intra-aortic balloon pump in place 2. Coronary artery disease with a mid LAD lesion status post emergent cardiac catheterization and PTCA and stenting 3. Unresponsiveness with prolonged downtime estimated to be at least 40 minutes. - The patient has signs of anoxic encephalopathy. 4. Acute respiratory failure secondary to cardiac arrest. - The patient was intubated and mechanically ventilated. 5. Shock postcardiac arrest and the patient has intra-aortic balloon pump in place. - Currently off pressors 6. Severe metabolic acidosis, improved 7. Diarrhea, likely postcardiac arrest ischemic colitis 8. Acute leukocytosis secondary to above Time with Patient: Greater than 30
--- NOTE | 2019-01-23 20:25 | P.DS ---
Providers Date of admission: 01/19/19 19:38 Expected date of discharge: 01/21/19 Attending physician: Kinza Conti MD Consults: 01/19/19 21:54 Consult Physician Stat Consulting Provider: Katerina Jackson Consult Reason/Comments: Ventilator management Do you want consulting provider notified?: Yes 01/20/19 08:53 Consult Physician Stat Consulting Provider: Belinda Dc Consult Reason/Comments: Cardiac Arrest, STEMI Do you want consulting provider notified?: Already Contacted Primary care physician: [facility] Course: 43-year-old female patient was brought into the emergency department yesterday via EMS following a cardiac arrest. The patient has an extensive family history for cardiac disease. She is a smoker. Apparently she was not doing and feeling well the day before the admission. The patient was having some chest pain on and off. The wanted to drive this patient to the hospital and on around the patient became unresponsive. Apparently the patient was pulled out of the car and the initiated CPR. There were also some bystanders were involved in the CPR process. Following that EMS arrived to the scene and the patient was found to be in ventricular fibrillation and cardiac arrest. Resuscitation was continued. The patient was intubated on the field. She was given a total of 4 mg of epinephrine and amiodarone and she was given shocks total of 5 times. The patient was brought into the emergency department and she arrived at 5:40 PM. Note that the cardiac arrest occurred at around 5 PM and the first is a station was initiated at 5:20 PM. In the ED, the patient had initial EKG that showed ST segment elevations, she was taken ventilator cardiac lab. Note that in the ED, the patient had another brief cardiac arrest and she also interested in the cardiac lab. Catheterization was done. The patient was found to have LAD occlusion and an emergent PTCA and stenting of a total occluded mid LAD was performed for an anterior wall myocardial infarction. Intra-aortic balloon pump was also placed via the femoral approach. Following that, the patient was brought into the intensive care unit 01/21/2019, the patient remains completely unresponsive. She is on 20 mics of the prevent. No seizure activity. EEG from yesterday at shown diffuse slowing along with burst suppression. The patient has remained hemodynamically stable throughout the night. The intra-aortic balloon pump still in place. The patient is currently off pressors. She is producing adequate amount of urine output and she has equal and symmetrical pulses all 4 extremities. Based on all this, I discontinue the IV heparin and subsequently the intra-aortic balloon pump was discontinued. A echocardiogram was done and the patient was found to have impaired LV function with an ejection fraction of 20-25%. Chest x -ray from today showed overall stable findings without any acute cardio pulmonary process. He was in a good location. The patient was in a mechanical ventilator on the same vent setting and the pH was at 7.45 with a pCO2 of 32 and pO2 116 and this was on FiO2 of 35%. She did have some liquid the bowel movements. No abdominal distention. White cell count is at 18.2. Renal function stable at creatinine of 0.7. In terms of her neurologic function is, do not see any progress since yesterday. The patient remains completely unresponsive to deep painful stimulation. Upon lowering the sedation, the patient with Mitchell on the tube. She has sluggish reflexes. She has a weak cough and mechanism. Corneal reflexes also present. At times she is breathing above the mechanical ventilator. He is afebrile. I discussed the case with the family. I think she needs to get transferred to another facility where she will get a neurologic evaluation. I'm going to get a CAT scan of her head prior to her being transferred to make sure there is no acute abnormalities. This CAT scan will be done after removal of the intra-aortic balloon pump. He is afebrile. No other significant events otherwise for now. Patient transferred to another facility for higher level of care Patient Condition at Discharge: Critical Plan - Discharge Summary Discharge Rx Participant: No New Discharge Prescriptions: No Action Elderberry Fruit/Honey [Little Remedies Cough-Immune] 10 ml PO DAILY Discharge Medication List Elderberry Fruit/Honey [Little Remedies Cough-Immune] 10 ml PO DAILY 01/19/19 [ History] Follow up Appointment(s)/Referral(s): Nonstaff,Physician [REFERRING] - 1-2 days Discharge Disposition: TRANSFER TO SHORT TERM HOSP
== END 2019-01-21 14:45 | disposition short-term general hospital (02) | DRG 270 ==
LOC: EC 17:39 → 2SICU 19:38
PROVIDERS: ADMIT Internal Medicine; ATTEND Internal Medicine
PROC: 4A023N7 Measurement of Cardiac Sampling and Pressure, Left Heart, Percutaneous Approach (ICD-10-PCS; 2019-01-19)
PROC: B2111ZZ Fluoroscopy of Multiple Coronary Arteries using Low Osmolar Contrast (ICD-10-PCS; 2019-01-19)
PROC: 5A2204Z Restoration of Cardiac Rhythm, Single (ICD-10-PCS; 2019-01-19)
PROC: 5A1945Z Respiratory Ventilation, 24-96 Consecutive Hours (ICD-10-PCS; principal; 2019-01-19 19:34)
PROC: 5A02210 Assistance with Cardiac Output using Balloon Pump, Continuous (ICD-10-PCS; 2019-01-19 19:34)
PROC: 027034Z Dilation of Coronary Artery, One Artery with Drug-eluting Intraluminal Device, Percutaneous Approach (ICD-10-PCS; 2019-01-19 19:34)
DX: I21.09 ST elevation (STEMI) myocardial infarction involving other coronary artery of anterior wall (principal); I49.01 Ventricular fibrillation; R57.0 Cardiogenic shock; J96.01 Acute respiratory failure with hypoxia; G93.41 Metabolic encephalopathy; G93.1 Anoxic brain damage, not elsewhere classified; K55.9 Vascular disorder of intestine, unspecified; E87.2 Acidosis; I47.2 Ventricular tachycardia; I45.10 Unspecified right bundle-branch block; F17.200 Nicotine dependence, unspecified, uncomplicated; I25.10 Atherosclerotic heart disease of native coronary artery without angina pectoris; D72.829 Elevated white blood cell count, unspecified; Z79.899 Other long term (current) drug therapy; Z98.51 Tubal ligation status; Z86.19 Personal history of other infectious and parasitic diseases; Z82.49 Family history of ischemic heart disease and other diseases of the circulatory system
CPT/HCPCS: 33967; 36415; 36600; 71045; 80053; 80306; 80320; 81003; 81025; 82150; 82805; 83690; 83735; 83880; 84100; 84132; 84484; 85025; 85379; 85610; 85730; 87070; 87086; 87205; 93005; 93306; 93454; 94002; 94003; 95819; 96374; 96375; 99291; C1874